=== PATIENT | female | born 1930 | race Caucasian/White ===

== ENCOUNTER 2021-09-08 12:33 | Inpatient (IN) ==
[2021-09-08] MEDS ORDERED: SODIUM CHLORIDE 0.9% 500 ML IV STA (12:40)
[2021-09-08 13:34] LABS: Basophils # (auto) 0.02 K/uL (0-0.2); Basophils % (auto) 0.1 %; Hematocrit (blood only) 34.3 % (37-47); Hemoglobin 11.4 g/dL (12.0-16.0); Immature Granulocytes # (auto) 0.06 K/uL (0.00-0.02); Immature Granulocytes % (auto) 0.3 %; Lymphocytes # (auto) 0.83 K/uL (1.2-3.4); Lymphocytes % (auto) 4.6 %; Mean Corpuscular Hemoglobin 29.2 pg (25-34); Mean Corpuscular Hgb Conc 33.2 g/dL (32-36); Mean Corpuscular Volume 87.9 fL (80-100); Mean Platelet Volume 10.3 fL (7.4-10.4); Monocytes # (auto) 1.35 K/uL (0.11-0.59); Monocytes % (auto) 7.5 %; Neutrophils # (auto) 15.75 K/uL (1.4-6.5); Neutrophils % (auto) 87.5 %; Platelet Count 317 K/uL (130-400); RDW Coefficient of Variation 14.5 % (11.5-14.5); RDW Standard Deviation 46.2 fL (36.4-46.3); White Blood Count 18.01 K/uL (4.8-10.8)
[2021-09-08 14:43] LABS: Albumin Level 3.7 gm/dl (3.4-5.0); BUN Creatinine Ratio 29.2 (10-20); Calcium 9.1 mg/dl (8.5-10.1); Creatinine Clr Calc Pharmacy 28.7 ml/min; Est GFR (African American) 50.3 ml/min; Est GFR (Non-African American) 43.4 ml/min; Globulin 3.6 gm/dl (2.5-4.0); Potassium 3.2 mmol/L (3.5-5.1); Total Protein 7.3 gm/dl (6.0-8.3)
[2021-09-08 15:02] LABS: Appearance Urine Turbid (Clear); Bilirubin Urine 1+ (Negative); Blood Urine 3+ (Negative); Color Urine Amber; Glucose Urine UA Negative (Negative); Ketones Urine Negative (Negative); Leukocyte Esterase Urine 3+ (Negative); Nitrite Urine Negative (Negative); Protein Urine 3+ (Negative); Specific Gravity Urine >= 1.030 (1.000-1.030); Urobilinogen Urine Negative (Negative)
[2021-09-08 15:12] LABS: Bacteria Urine 4+ (Negative); WBC Urine >30 /hpf (0-5)
--- NOTE | 2021-09-08 16:51 | Emergency Department Note ---
History of Present Illness General Chief complaint: Diarrhea Time Seen by Provider: 09/08/21 13:47 Source: patient and family Mode of arrival: EMS Limitations: no limitations History of Present Illness Provider complaint: Weakness, lightheadedness, diarrhea Onset (ago): day(s) Location: abdomen Associated symptoms: + loss of appetite, + malaise, + nausea/vomiting and + weakness; no chest pain, no fever/chills or no shortness of breath Treatments prior to arrival: none This is an 89-year-old female presents emergency department complaining of weakness, dizziness, and diarrhea. Patient states she had recently been evaluated here a couple weeks ago and was diagnosed with a UTI. She states she completed 10 days of antibiotics during which time she had started having some diarrhea. She states since completing the antibiotics her diarrhea has persisted. She denies noting any blood. She states she has several episodes per day and sometimes cannot get to the bathroom in time. Patient denies fevers or chills, denies abdominal pain. Patient states she is weak and dizzy and feels worse when she tries to sit up or stand up. Of note, nurses noted patient to be hypotensive when she first presented. She was initially given an IV fluid bolus per their protocol. Pt seen during a time of high acuity and national emergency pandemic while wearing PPE. Home Medications Medication Instructions Recorded Confirmed Type carvedilol 3.125 mg tablet 3.125 mg PO BID 07/20/21 09/08/21 History simvastatin 40 mg tablet 40 mg PO HS 07/20/21 09/08/21 History ferrous sulfate 325 mg (65 mg 325 mg PO DAILY #30 tab 09/10/21 Rx iron) tablet vancomycin 1,000 mg intravenous 125 mg PO Q6 #33 ea 09/10/21 Rx injection Allergies Allergy/AdvReac Type Severity Reaction Status Date / Time Penicillins Allergy Intermediate Hives Verified 09/08/21 15:23 Sulfa (Sulfonamide AdvReac Intermediate Vomiting Verified 09/08/21 15:23 Antibiotics) Past Med/Surg History Medical History (Updated 09/10/21 @ 18:20 by Clari Forrester DO) Aortic stenosis CAD (coronary artery disease) HLD (hyperlipidemia) HTN (hypertension) Hypertension Mitral regurgitation UTI (urinary tract infection) Family History (Updated 09/08/21 @ 18:29 by VIRGINIE Cherry) Other Family history non-contributory Social History Smoking Status: Former smoker Second Hand Exposure: No; Hx Alcohol Use: No Hx Substance Use: No Preferred Language: Moldovan Communication Ability: Effective Pattern Chart Writer Required: No Beliefs That Will Affect Care: None marital status: / Current Living Situation: Alone Feels Safe at Home: Yes Assistive Devices: Denture - Upper and Glasses Review of Systems A total of 10 systems reviewed and were otherwise negative All systems reviewed & are unremarkable except as noted in HPI & below Physical Exam Vital Signs Vital Signs - 24 hr 09/08/21 12:23 09/08/21 12:36 09/08/21 14:23 Temperature 36.7 C Temperature Source Temporal Artery Scan Pulse Rate 81 Pulse Rate [Right Finger] 74 76 Pulse Rhythm [Right Finger] Regular Regular Pulse Strength [Right Finger] Normal Normal Respiratory Rate 20 17 18 Respiratory Effort / Characteristics Non-Labored Spontaneous Non-Labored Spontaneous Non-Labored Respiratory Depth Normal Normal Normal Respiratory Pattern Regular Regular Blood Pressure 89/63 L Blood Pressure [Right Arm] 120/87 120/87 Blood Pressure Mean 71 Blood Pressure Mean [Right Arm] 98 98 Blood Pressure Position [Right Arm] Sitting Sitting Pulse Oximetry 98 94 99 Oxygen Delivery Method Room Air Room Air Room Air Sepsis Recent Fever Within 48 Hours No Sepsis New/Unexplained Change in Mental Status No Sepsis Action Taken by Nursing No Action Required 09/08/21 16:02 Temperature Temperature Source Pulse Rate Pulse Rate [Right Finger] 68 Pulse Rhythm [Right Finger] Pulse Strength [Right Finger] Respiratory Rate 15 Respiratory Effort / Characteristics Respiratory Depth Normal Respiratory Pattern Blood Pressure Blood Pressure [Right Arm] 108/63 Blood Pressure Mean Blood Pressure Mean [Right Arm] 78 Blood Pressure Position [Right Arm] Pulse Oximetry 97 Oxygen Delivery Method Sepsis Recent Fever Within 48 Hours Sepsis New/Unexplained Change in Mental Status Sepsis Action Taken by Nursing GENERAL: alert, unwell appearing, well nourished, no distress, non-toxic EYE EXAM: normal conjunctiva, PERRL and EOM's grossly intact OROPHARYNX: no exudate, no erythema, lips, buccal mucosa, and tongue normal and mucous membranes are dry NECK: supple, no nuchal rigidity, no adenopathy, non-tender LUNGS: Clear to auscultation. Normal chest wall mechanics, no w/r/r HEART: no murmurs, S1 normal and S2 normal ABDOMEN: abdomen soft, non-tender, normo-active bowel sounds, no masses, no rebound or guarding. BACK: Back is symmetrical on inspection and there is no deformity, no midline tenderness, no CVA tenderness. SKIN: no rashes and no bruising UPPER EXTREMITIES: upper extremities are grossly normal. FROM, nml pulses b/l. LOWER EXTREMITIES: No pitting edema. FROM, nml pulses b/l. NEURO EXAM: Normal sensorium, cranial nerves II-XII grossly intact, normal speech, no gross weakness of arms, no gross weakness of legs. Gross sensation intact. Course Course 1635: Blood pressure slightly downtrending again after IV fluids finished. Patient states she would like to try something by mouth. No recurrent diarrhea since single episode shortly after arrival. Patient states she still feels weak and dizzy but slightly improved. 1715: Patient unable to tolerate anything by mouth, no recurrent vomiting, but states at times made her nauseated and she does not have an appetite. Administered Medications Discontinued Medications Aspirin (Aspirin 81 Mg Ectab) 81 mg PO HS ROSANA Stop: 10/08/21 21:43 Last Admin: 09/09/21 21:10 Dose: 81 mg Documented by: [id number] Admin: 09/08/21 22:26 Dose: 81 mg Documented by: [id number] Carvedilol (Carvedilol 3.125 Mg Tab) 3.125 mg PO BID ROSANA Stop: 10/08/21 21:43 Last Admin: 09/10/21 08:18 Dose: 3.125 mg Documented by: [id number] Admin: 09/09/21 21:10 Dose: 3.125 mg Documented by: [id number] Admin: 09/09/21 08:32 Dose: 3.125 mg Documented by: [id number] Admin: 09/08/21 22:26 Dose: 3.125 mg Documented by: [id number] Heparin Sodium (Porcine) (Heparin Sod 5,000 Unit/0.5 Ml Vial) 5,000 units SQ Q12 ROSANA Stop: 10/08/21 21:43 Last Admin: 09/09/21 08:33 Dose: 5,000 units Documented by: [id number] Admin: 09/08/21 22:27 Dose: 5,000 units Documented by: [id number] Heparin Sodium (Porcine) (Heparin Sod 5,000 Unit/0.5 Ml Vial) 5,000 units SQ Q12 ROSANA Stop: 10/08/21 21:43 Last Admin: 09/08/21 22:13 Dose: Not Given Documented by: [id number] Sodium Chloride (Nss) 500 mls @ 999 mls/hr IV .Q31M STA Stop: 09/08/21 13:10 Last Infusion: 09/08/21 15:24 Dose: 0 mls/hr Documented by: [id number] Admin: 09/08/21 12:57 Dose: 999 mls/hr Documented by: [id number] Ceftriaxone Sodium (Rocephin) 1,000 mg in 50 mls @ 100 mls/hr IV NOW STA Stop: 09/08/21 17:30 Last Infusion: 09/08/21 17:43 Dose: 0 mls/hr Documented by: [id number] Admin: 09/08/21 17:23 Dose: 100 mls/hr Documented by: [id number] Lactated Ringer's (Lr) 1,000 mls @ 80 mls/hr IV .[id number] ROSANA Stop: 10/08/21 17:29 Last Admin: 09/10/21 09:53 Dose: Not Given Documented by: [id number] Infusion: 09/10/21 09:53 Dose: 0 mls/hr Documented by: [id number] Admin: 09/09/21 19:51 Dose: 80 mls/hr Documented by: [id number] Infusion: 09/09/21 19:10 Dose: 80 mls/hr Documented by: [id number] Infusion: 09/09/21 14:45 Dose: 80 mls/hr Documented by: [id number] Admin: 09/09/21 09:34 Dose: 125 mls/hr Documented by: [id number] Infusion: 09/09/21 09:00 Dose: 125 mls/hr Documented by: [id number] Admin: 09/09/21 01:00 Dose: 125 mls/hr Documented by: [id number] Infusion: 09/09/21 01:00 Dose: 125 mls/hr Documented by: [id number] Admin: 09/08/21 17:43 Dose: 125 mls/hr Documented by: [id number] Magnesium Sulfate/Dextrose (Magnesium Sulfate / D5w) 1 gm in 100 mls @ 50 mls/hr IV Q2H ROSANA Stop: 09/09/21 00:59 Last Infusion: 09/09/21 03:04 Dose: 0 mls/hr Documented by: [id number] Admin: 09/09/21 01:00 Dose: 50 mls/hr Documented by: [id number] Infusion: 09/09/21 00:56 Dose: 50 mls/hr Documented by: [id number] Admin: 09/08/21 22:56 Dose: 50 mls/hr Documented by: [id number] Infusion: 09/08/21 21:15 Dose: 50 mls/hr Documented by: [id number] Admin: 09/08/21 19:15 Dose: 50 mls/hr Documented by: [id number] Ceftriaxone Sodium 2,000 mg/ (Dextrose) 50 mls @ 100 mls/hr IV Q24H ROSANA; Protocol Stop: 09/19/21 17:59 Last Infusion: 09/09/21 18:29 Dose: 0 mls/hr Documented by: [id number] Admin: 09/09/21 17:59 Dose: 100 mls/hr Documented by: [id number] Potassium Chloride (Potassium Chloride Crtab 20 Meq Tabcr) 40 meq PO NOW STA Stop: 09/08/21 17:29 Last Admin: 09/08/21 17:43 Dose: 40 meq Documented by: [id number] Potassium Chloride (Potassium Chloride Crtab 20 Meq Tabcr) 40 meq PO Q6H ROSANA Stop: 09/10/21 20:31 Last Admin: 09/10/21 12:14 Dose: 40 meq Documented by: [id number] Admin: 09/10/21 09:26 Dose: 40 meq Documented by: [id number] Raspberry (Raspberry Syrup 5 Ml Udp) 5 ml PO Q6 ROSANA Stop: 09/19/21 00:00 Last Admin: 09/10/21 12:14 Dose: 5 ml Documented by: [id number] Admin: 09/10/21 05:51 Dose: 5 ml Documented by: [id number] Admin: 09/10/21 00:47 Dose: 5 ml Documented by: [id number] Admin: 09/09/21 17:59 Dose: 5 ml Documented by: [id number] Admin: 09/09/21 12:37 Dose: 5 ml Documented by: [id number] Admin: 09/09/21 05:18 Dose: 5 ml Documented by: [id number] Admin: 09/09/21 01:00 Dose: 5 ml Documented by: [id number] Simvastatin (Simvastatin 40 Mg Tab) 40 mg PO HS ROSANA Stop: 10/08/21 21:43 Last Admin: 09/09/21 21:10 Dose: 40 mg Documented by: [id number] Admin: 09/08/21 22:27 Dose: 40 mg Documented by: [id number] Vancomycin HCl (Vancomycin Hcl 125 Mg/2.5ml Soln) 125 mg PO ONE ONE; Protocol Stop: 09/08/21 18:02 Last Admin: 09/08/21 20:37 Dose: 125 mg Documented by: [id number] Vancomycin HCl (Vancomycin Hcl 125 Mg/2.5ml Soln) 125 mg PO Q6 ROSANA; Protocol Stop: 09/19/21 00:00 Last Admin: 09/10/21 12:13 Dose: 125 mg Documented by: [id number] Admin: 09/10/21 05:51 Dose: 125 mg Documented by: [id number] Admin: 09/10/21 00:47 Dose: 125 mg Documented by: [id number] Admin: 09/09/21 17:59 Dose: 125 mg Documented by: [id number] Admin: 09/09/21 12:37 Dose: 125 mg Documented by: [id number] Admin: 09/09/21 05:18 Dose: 125 mg Documented by: [id number] Admin: 09/09/21 01:00 Dose: 125 mg Documented by: [id number] Medical Decision Making Differential Diagnosis Differential Diagnosis includes but is not limited to dehydration, stroke, anemia, hypoglycemia, hyponatremia, hypernatremia, urinary tract infection, pneumonia, bronchitis, sepsis, gastroenteritis, additional abdominal pathology, metabolic abnormalities and infections. Medical Records Attestation: I reviewed the patient's medical records. Home Medications Current Medication List: was personally reviewed by me Laboratory Data Attestation: I reviewed the patient's lab results. Result diagrams: 09/10/21 06:35 09/10/21 06:35 Lab Results 09/08/21 09/08/21 09/08/21 Range/Units 12:57 12:57 12:57 WBC 18.01 H (4.8-10.8) K/uL RBC 3.90 L (4.2-5.4) M/uL Hgb 11.4 L (12.0-16.0) g/dL Hct 34.3 L (37-47) % MCV 87.9 (80-100) fL MCH 29.2 (25-34) pg MCHC 33.2 (32-36) g/dL RDW Std Deviation 46.2 (36.4-46.3) fL RDW Coeff of Annette 14.5 (11.5-14.5) % Plt Count 317 (130-400) K/uL MPV 10.3 (7.4-10.4) fL Immature Gran % (Auto) 0.3 % Neut % (Auto) 87.5 % Lymph % (Auto) 4.6 % Cherry % (Auto) 7.5 % Eos % (Auto) 0.0 % Baso % (Auto) 0.1 % Neut # (Auto) 15.75 H (1.4-6.5) K/uL Lymph # (Auto) 0.83 L (1.2-3.4) K/uL Cherry # (Auto) 1.35 H (0.11-0.59) K/uL Eos # (Auto) 0.00 (0-0.5) K/uL Baso # (Auto) 0.02 (0-0.2) K/uL Immature Gran # (Auto) 0.06 H (0.00-0.02) K/uL Sodium 136 (136-145) mmol/L Potassium 3.2 L (3.5-5.1) mmol/L Chloride 102 (98-107) mmol/L Carbon Dioxide 21 (21-32) mmol/L Anion Gap 13 H (3-11) BUN 33 H (6-23) mg/dl Creatinine 1.13 (0.6-1.2) mg/dl Est Cr Clr Drug Dosing 28.7 ml/min Est GFR ( Amer) 50.3 ml/min Est GFR (Non-Af Amer) 43.4 ml/min BUN/Creatinine Ratio 29.2 H (10-20) Glucose 105 H (70-99(Fasting)) mg/dl Lactate (0.4-2.0) mmol/L Calcium 9.1 (8.5-10.1) mg/dl Magnesium 1.7 (1.7-2.4) mg/dl Total Bilirubin 1.0 (0.2-1.0) mg/dl AST 17 (13-39) U/L ALT 10 (7-52) U/L Alkaline Phosphatase 48 (34-104) U/L Total Protein 7.3 (6.0-8.3) gm/dl Albumin 3.7 (3.4-5.0) gm/dl Globulin 3.6 (2.5-4.0) gm/dl Albumin/Globulin Ratio 1.0 (0.9-2) Lipase 9 L (11-82) U/L Procalcitonin (0-0.5) ng/ml Urine Color Urine Appearance (Clear) Urine pH (4.5-7.5) Ur Specific [place] (1.000-1.030) Urine Protein (Negative) Urine Glucose (UA) (Negative) Urine Ketones (Negative) Urine Blood (Negative) Urine Nitrite (Negative) Urine Bilirubin (Negative) Urine Urobilinogen (Negative) Ur Leukocyte Esterase (Negative) Urine RBC (0-4) /hpf Urine WBC (0-5) /hpf Ur Epithelial Cells (0-5) /lpf Ur Renal Epithelial Cell (0-5) /lpf Urine Bacteria (Negative) SARS-CoV-2, RNA, NAAT (NEGATIVE) 09/08/21 09/08/21 09/08/21 Range/Units 14:20 14:47 14:47 WBC (4.8-10.8) K/uL RBC (4.2-5.4) M/uL Hgb (12.0-16.0) g/dL Hct (37-47) % MCV (80-100) fL MCH (25-34) pg MCHC (32-36) g/dL RDW Std Deviation (36.4-46.3) fL RDW Coeff of Annette (11.5-14.5) % Plt Count (130-400) K/uL MPV (7.4-10.4) fL Immature Gran % (Auto) % Neut % (Auto) % Lymph % (Auto) % Cherry % (Auto) % Eos % (Auto) % Baso % (Auto) % Neut # (Auto) (1.4-6.5) K/uL Lymph # (Auto) (1.2-3.4) K/uL Cherry # (Auto) (0.11-0.59) K/uL Eos # (Auto) (0-0.5) K/uL Baso # (Auto) (0-0.2) K/uL Immature Gran # (Auto) (0.00-0.02) K/uL Sodium (136-145) mmol/L Potassium (3.5-5.1) mmol/L Chloride (98-107) mmol/L Carbon Dioxide (21-32) mmol/L Anion Gap (3-11) BUN (6-23) mg/dl Creatinine (0.6-1.2) mg/dl Est Cr Clr Drug Dosing ml/min Est GFR ( Amer) ml/min Est GFR (Non-Af Amer) ml/min BUN/Creatinine Ratio (10-20) Glucose (70-99(Fasting)) mg/dl Lactate 1.5 (0.4-2.0) mmol/L Calcium (8.5-10.1) mg/dl Magnesium (1.7-2.4) mg/dl Total Bilirubin (0.2-1.0) mg/dl AST (13-39) U/L ALT (7-52) U/L Alkaline Phosphatase (34-104) U/L Total Protein (6.0-8.3) gm/dl Albumin (3.4-5.0) gm/dl Globulin (2.5-4.0) gm/dl Albumin/Globulin Ratio (0.9-2) Lipase (11-82) U/L Procalcitonin 0.09 (0-0.5) ng/ml Urine Color Marquita Urine Appearance Turbid A (Clear) Urine pH 7.0 (4.5-7.5) Ur Specific [place] >= 1.030 (1.000-1.030) Urine Protein 3+ H (Negative) Urine Glucose (UA) Negative (Negative) Urine Ketones Negative (Negative) Urine Blood 3+ H (Negative) Urine Nitrite Negative (Negative) Urine Bilirubin 1+ H (Negative) Urine Urobilinogen Negative (Negative) Ur Leukocyte Esterase 3+ H (Negative) Urine RBC 10-30 H (0-4) /hpf Urine WBC >30 H (0-5) /hpf Ur Epithelial Cells 5-10 H (0-5) /lpf Ur Renal Epithelial Cell 5-10 H (0-5) /lpf Urine Bacteria 4+ H (Negative) SARS-CoV-2, RNA, NAAT (NEGATIVE) 03/22/22 Range/Units 17:25 WBC (4.8-10.8) K/uL RBC (4.2-5.4) M/uL Hgb (12.0-16.0) g/dL Hct (37-47) % MCV (80-100) fL MCH (25-34) pg MCHC (32-36) g/dL RDW Std Deviation (36.4-46.3) fL RDW Coeff of Annette (11.5-14.5) % Plt Count (130-400) K/uL MPV (7.4-10.4) fL Immature Gran % (Auto) % Neut % (Auto) % Lymph % (Auto) % Cherry % (Auto) % Eos % (Auto) % Baso % (Auto) % Neut # (Auto) (1.4-6.5) K/uL Lymph # (Auto) (1.2-3.4) K/uL Cherry # (Auto) (0.11-0.59) K/uL Eos # (Auto) (0-0.5) K/uL Baso # (Auto) (0-0.2) K/uL Immature Gran # (Auto) (0.00-0.02) K/uL Sodium (136-145) mmol/L Potassium (3.5-5.1) mmol/L Chloride (98-107) mmol/L Carbon Dioxide (21-32) mmol/L Anion Gap (3-11) BUN (6-23) mg/dl Creatinine (0.6-1.2) mg/dl Est Cr Clr Drug Dosing ml/min Est GFR ( Amer) ml/min Est GFR (Non-Af Amer) ml/min BUN/Creatinine Ratio (10-20) Glucose (70-99(Fasting)) mg/dl Lactate (0.4-2.0) mmol/L Calcium (8.5-10.1) mg/dl Magnesium (1.7-2.4) mg/dl Total Bilirubin (0.2-1.0) mg/dl AST (13-39) U/L ALT (7-52) U/L Alkaline Phosphatase (34-104) U/L Total Protein (6.0-8.3) gm/dl Albumin (3.4-5.0) gm/dl Globulin (2.5-4.0) gm/dl Albumin/Globulin Ratio (0.9-2) Lipase (11-82) U/L Procalcitonin (0-0.5) ng/ml Urine Color Urine Appearance (Clear) Urine pH (4.5-7.5) Ur Specific [place] (1.000-1.030) Urine Protein (Negative) Urine Glucose (UA) (Negative) Urine Ketones (Negative) Urine Blood (Negative) Urine Nitrite (Negative) Urine Bilirubin (Negative) Urine Urobilinogen (Negative) Ur Leukocyte Esterase (Negative) Urine RBC (0-4) /hpf Urine WBC (0-5) /hpf Ur Epithelial Cells (0-5) /lpf Ur Renal Epithelial Cell (0-5) /lpf Urine Bacteria (Negative) SARS-CoV-2, RNA, NAAT NEGATIVE (NEGATIVE) MDM Narrative This is an 89 yo female who presents with weakness, dizziness, poor po intake, and ongiong diarrhea after recent course of antibiotics for a UTI. Patient did complete the course and on review of culture in EMR, was sensitive to antibiotic. Patient initially hypotensive and orthostatic, she did respond to IVF bolus. Patient afebrile and denied abd pain. Patient appeared prerenal on labs with mild hypomagnesemia. Patient hydrated, magnesium repleted, and pt wished to try to go home. Patient was unable to tolerate po intake here, was still orthostatic at bedside, unable to walk, with downtrending BP. Discussed additional inpatient mgmt and monitoring, pt and daughter at bedside verbalized understanding and were in agreement. Patient was unable to produce stool specimen for testing including C.diff initially. Despite recent UTI, UA appeared consistent with possible infection so patient covered with IV rocephin. Patient denied abd pain throughout. I do not suspect perf, gi bleed, sbo, volvulus, mesenteric ischemia, aaa, dissection, diverticulitis, cholecystitis, pancreatitis. An order was placed for continuous cardiac monitoring. The monitor shows a rate of __60_ with _normal sinus__ rhythm. Impression & Plan Generalized weakness, Diarrhea, Hypomagnesemia, Hypotension, Dehydration Discharge Plan Visit Data Chief Complaint: Diarrhea ED Provider: Clari Forrester Discharge Problem: Generalized weakness, Diarrhea, Hypomagnesemia, Hypotension, Dehydration Patient Disposition: Admitted As Inpatient Discharge Instructions Interventions: ED Discharge Assessment Last Done: 09/08/21 20:58 Discharge Problem: Diarrhea Qualifiers: Diarrhea type: unspecified type Qualified Code(s): R19.7 - Diarrhea, unspecified Hypotension Qualifiers: Hypotension type: hypotension due to hypovolemia Qualified Code(s): I95.89 - Other hypotension
[2021-09-08] MEDS ORDERED: cefTRIAXone SODIUM 1,000 MG/50 ML BAG IV STA (17:01)
[2021-09-08] MEDS ORDERED: POTASSIUM CHLORIDE CRTAB 20 MEQ TABCR PO STA (17:28)
[2021-09-08] MEDS: LACTATED RINGER'S 1,000 ML IV SCH (17:43)
[2021-09-08] MEDS ORDERED: VANCOMYCIN HCL 125 MG/2.5ML SOLN PO ONE (18:01)
--- NOTE | 2021-09-08 18:51 | History & Physical Report ---
Date of Service September 08, 2021 Assessment & Plan (1) Diarrhea: Plan: Diarrhea most likely consistent at this time C. Diff - DDX: CDiff vs. Diverticulitis vs. colitis - Symptoms started following ABX and LLQ abdominal pain was noted after her diarrhea started - 5-6 episodes per day - CT abdomen and pelvis above - [place] diet - Continue LR for replacement of intravascular volume until better able to tolerate PO - Lactate negative - PCT negative (2) C. difficile colitis: Plan: As above highly suspect C. Diff - Start Oral Vancomycin - CT scan consistent with pancolitis - as above likely C. Diff- culture pending (3) UTI (urinary tract infection): Plan: 08/24/21 E. Coli with past culture- no sensitivities - Urine culture pending - Rocephin 2GM IV q24- adjust pending cultures (4) Hypomagnesemia: Plan: Secondary to diarrhea loses and poor oral intake - Mg 1.7 - 3 GM IVPB - will likely need continued replacement until stool losses become less (5) Abdominal pain: Plan: As above- LLQ tenderness rule out diverticulitis - evaluate Colon size as well with CTAP (6) Aortic stenosis: Plan: Follows with Dr. Lopez- had worsening of Aortic Stenosis - EF 60% with mild LVH - LVOT/AVTI ratio 0.21 - Awaiting evaluation for likely TAVR at [facility] (7) CAD (coronary artery disease): Plan: Non-obstructive via cath 07/11 - 1. Moderate nonobstructive multivessel coronary artery disease -40 % distal left main (CSA 7.4 mm by IVUS) 50 to 60% (by IVUS) ostial/proximal LAD disease (FFR 0.85). 50% ostial circumflex 40% R-PAV after takeoff of PDA Continue BB, ASA, Statin (8) HLD (hyperlipidemia): Plan: Continue simvastatin 40mg nightly (9) HTN (hypertension): Plan: Controlled- She was hypotensive on arrival- improved following 1L of crystalloid - Continue Carvedilol with hold parameters (10) Mitral regurgitation: Plan: As above- no change reported on previous ECHO (11) Incidental adrenal cortical adenoma: Plan: There is a 2.8 cm hyperdense left adrenal gland nodule. This could represent internal hemorrhage within an adrenal gland nodule (12) Incidental lung nodule: Plan: A few scattered nodules within the lung bases with the largest in the left lower lobe measuring 6 mm. There is also a small focus of consolidation within the base of the lingula measuring 1.6 cm. These bear watching on future examin ations. Solitary nodule size: 6-8 mm * Low risk patients: follow-up at 6-12 months, then consider further follow-up at 18-24 months * high risk patients: initial follow-up CT at 6-12 months and then at 18-24 months if no change Multiple nodules size: 6-8 mm * Low risk patients: follow-up at 3-6 months, then consider further follow-up at 18-24 months * high risk patients: follow-up at 3-6 months, then at 18-24 months if no change History of Present Illness Primary Care Provider: Benson Vasquez, DO 89 YOF with past medical history of: Aortic Stenosis (Severe), Moderate Mitral Regurge, HTN, HLD, UTI. Patient comes to the [facility] today for complaints of increase fatigue, diarrhea, decreased oral intake, this has been ongoing for the past 2 weeks, she endorses that this recently started after she was given Cefdinir for URI. This was initiated on on 08/24/21, she was also subsequently found at that time to have E.Coli on her urine culture, but sensitivities were not performed. The patient states that she has some lower quadrant abdominal pain that started after the diarrhea began. She denies fevers, chills, back pain, or vomiting. Her stools have been soft with mostly water and particles floating on top, without mucous or blood. The patient was noted to be hypotens rangel on arrival to the [facility] she was given 1 liter of crystalloid; followed by LR @125ml/hr. In the [facility] the patient had routine labs performed, blood cultures, and UA. The patient's lab work was indicative of elevated WBC to 18 with NLR, and UA was consistent as well with UTI. She is awaiting stool studies to include C. DIFF. Patient is tender to bilateral lower quadrants of her abdomen, with left > right, will obtain CT of the abdomen and pelvis to evaluate for diverticulitis. Patient history more consistent with C. Diff at this time, will start empirically on oral Vancomycin while studies are pending. Place on Rocephin for her UTI. Await her results of CT abdomen and pelvis for further antibiotic tailoring. She has felt better following her IVF and attempting bland diet in the ER. Continue with IVF. Patient has been getting worked up for AV replacement likely TAVR- she follows with [facility] cardiology. She had cath done for part of her evaluation and noted with moderate non-obstructive CAD. She feels her symptoms are stable at this time and has not worsened with her decrease oral intake or hypotension noted above. COVID test on admission is: NEGATIVE Allergies Allergy/AdvReac Type Severity Reaction Status Date / Time Penicillins Allergy Intermediate Hives Verified 09/08/21 15:23 Sulfa (Sulfonamide AdvReac Intermediate Vomiting Verified 09/08/21 15:23 Antibiotics) Home Medications Medication Instructions Recorded Confirmed Type aspirin 81 mg capsule 81 mg PO HS 07/20/21 09/08/21 History carvedilol 3.125 mg tablet 3.125 mg PO BID 07/20/21 09/08/21 History hydrochlorothiazide 25 mg tablet 25 mg PO QAM 07/20/21 09/08/21 History simvastatin 40 mg tablet 40 mg PO HS 07/20/21 09/08/21 History Past Med/Surg History Medical History (Updated 09/08/21 @ 21:34 by VIRGINIE Cherry) Aortic stenosis CAD (coronary artery disease) HLD (hyperlipidemia) HTN (hypertension) Hypertension Mitral regurgitation UTI (urinary tract infection) Family History (Updated 09/08/21 @ 18:29 by VIRGINIE Cherry) Other Family history non-contributory Social History Smoking Status: Never smoker Hx Alcohol Use: Yes Hx Substance Use: No Preferred Language: [place] 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 Current Living Situation: Alone Feels Safe at Home: Yes Review of Systems Review of Systems: REVIEW OF SYSTEMS: Constitutional: No fever, sweats or chills Eyes: No diplopia, no worsening or blurred vision ENT: normal hearing, no trouble swallowing Respiratory: (+) dyspnea worsening to valve function, No cough, sputum, Cardiovascular: No chest pain, tightness or palpitations Abdomen: (+) pain, nausea, vomiting, diarrhea, NO constipation, nausea/vomitting Musculoskeletal: No joint pain, calf pain, swelling Neurologic: (+) generalized weakness, Psychiatric: No anxiety or depression Skin: No rash or itch Physical Exam Physical Exam: PHYSICAL EXAM: General: Fatigued appearing, awake, alert, no apparent distress Head: Normocephalic, atraumatic ENT: PERRLA, EOMI, no pharyngeal exudate, mucous membranes dry Neuro: AAO x 3, speech clear and appropriate, strength intact bilaterally 5/5, sensation intact and equal all extremities and dermatomes, no pronator drift Chest: equal rise and fall of the chest, no accessory muscle use, no heaves or thrills, clear to auscultation, on room air, Cardiac: Regular rate and rhythm, telemetry reviewed, skin warm dry, cap refill <3 seconds, peripheral pulses +2 no JVD, no murmur, no edema GI: NABS x 4 quadrants, soft, tender to palpation left lower quad > right lower quad, no rebound, guarding : Spontaneously voiding, no pain, no CVA tenderness, Extremities: Normal inspection, no peripheral edema or erythema, calfs nontender to palpation Psych: Normal mood and affect Skin: no rash or erythema Results & Data Results & Data ([facility]) Vital Signs (Past 12 Hours) Vital Signs Temp Pulse Pulse Resp BP BP Pulse Ox 09/08/21 16:02 68 15 108/63 97 09/08/21 14:23 76 18 120/87 99 09/08/21 12:36 36.7 C 81 17 89/63 L 94 09/08/21 12:23 74 20 120/87 98 Laboratory Results Laboratory Results - last 24 hr 09/08/21 09/08/21 09/08/21 12:57 12:57 12:57 WBC 18.01 H RBC 3.90 L Hgb 11.4 L Hct 34.3 L MCV 87.9 MCH 29.2 MCHC 33.2 RDW Std Deviation 46.2 RDW Coeff of Annette 14.5 Plt Count 317 MPV 10.3 Immature Gran % (Auto) 0.3 Neut % (Auto) 87.5 Lymph % (Auto) 4.6 Mcclain % (Auto) 7.5 Eos % (Auto) 0.0 Baso % (Auto) 0.1 Neut # (Auto) 15.75 H Lymph # (Auto) 0.83 L Mcclain # (Auto) 1.35 H Eos # (Auto) 0.00 Baso # (Auto) 0.02 Immature Gran # (Auto) 0.06 H Sodium 136 Potassium 3.2 L Chloride 102 Carbon Dioxide 21 Anion Gap 13 H BUN 33 H Creatinine 1.13 Est Cr Clr Drug Dosing 28.7 Est GFR ( Amer) 50.3 Est GFR (Non-Af Amer) 43.4 BUN/Creatinine Ratio 29.2 H Glucose 105 H Lactate Calcium 9.1 Magnesium 1.7 Total Bilirubin 1.0 AST 17 ALT 10 Alkaline Phosphatase 48 Total Protein 7.3 Albumin 3.7 Globulin 3.6 Albumin/Globulin Ratio 1.0 Lipase 9 L Procalcitonin Urine Color Urine Appearance Urine pH Ur Specific [place] Urine Protein Urine Glucose (UA) Urine Ketones Urine Blood Urine Nitrite Urine Bilirubin Urine Urobilinogen Ur Leukocyte Esterase Urine RBC Urine WBC Ur Epithelial Cells Ur Renal Epithelial Cell Urine Bacteria SARS-CoV-2, RNA, NAAT 09/08/21 09/08/21 09/08/21 14:20 14:47 14:47 WBC RBC Hgb Hct MCV MCH MCHC RDW Std Deviation RDW Coeff of Annette Plt Count MPV Immature Gran % (Auto) Neut % (Auto) Lymph % (Auto) Mcclain % (Auto) Eos % (Auto) Baso % (Auto) Neut # (Auto) Lymph # (Auto) Mcclain # (Auto) Eos # (Auto) Baso # (Auto) Immature Gran # (Auto) Sodium Potassium Chloride Carbon Dioxide Anion Gap BUN Creatinine Est Cr Clr Drug Dosing Est GFR ( Amer) Est GFR (Non-Af Amer) BUN/Creatinine Ratio Glucose Lactate 1.5 Calcium Magnesium Total Bilirubin AST ALT Alkaline Phosphatase Total Protein Albumin Globulin Albumin/Globulin Ratio Lipase Procalcitonin 0.09 Urine Color Marquita Urine Appearance Turbid A Urine pH 7.0 Ur Specific [place] >= 1.030 Urine Protein 3+ H Urine Glucose (UA) Negative Urine Ketones Negative Urine Blood 3+ H Urine Nitrite Negative Urine Bilirubin 1+ H Urine Urobilinogen Negative Ur Leukocyte Esterase 3+ H Urine RBC 10-30 H Urine WBC >30 H Ur Epithelial Cells 5-10 H Ur Renal Epithelial Cell 5-10 H Urine Bacteria 4+ H SARS-CoV-2, RNA, NAAT 09/08/21 17:25 WBC RBC Hgb Hct MCV MCH MCHC RDW Std Deviation RDW Coeff of Annette Plt Count MPV Immature Gran % (Auto) Neut % (Auto) Lymph % (Auto) Mcclain % (Auto) Eos % (Auto) Baso % (Auto) Neut # (Auto) Lymph # (Auto) Mcclain # (Auto) Eos # (Auto) Baso # (Auto) Immature Gran # (Auto) Sodium Potassium Chloride Carbon Dioxide Anion Gap BUN Creatinine Est Cr Clr Drug Dosing Est GFR ( Amer) Est GFR (Non-Af Amer) BUN/Creatinine Ratio Glucose Lactate Calcium Magnesium Total Bilirubin AST ALT Alkaline Phosphatase Total Protein Albumin Globulin Albumin/Globulin Ratio Lipase Procalcitonin Urine Color Urine Appearance Urine pH Ur Specific [place] Urine Protein Urine Glucose (UA) Urine Ketones Urine Blood Urine Nitrite Urine Bilirubin Urine Urobilinogen Ur Leukocyte Esterase Urine RBC Urine WBC Ur Epithelial Cells Ur Renal Epithelial Cell Urine Bacteria SARS-CoV-2, RNA, NAAT NEGATIVE Diagnostic Findings Abdomen/Pelvis CT 09/08/21 17:[address] WITHOUT CONTRAST CT DOSE: 334.30 mGy.cm HISTORY: Generalized abdominal pain - diarrhea TECHNIQUE: Multiaxial CT images of the abdomen and pelvis were performed without contrast. A dose lowering technique was utilized adhering to the principles of ALARA. COMPARISON STUDY: None. FINDINGS: Severe shaped scoliosis of the thoracolumbar spine. Small fat-cont aining right-sided Bochdalek hernia. A few subcentimeter nodules within the lung bases with the largest in the left lower lobe measuring 6 mm. Small focus of consolidation within the base of the lingula favors atelectasis. This measures approximately 1.6 cm. Ascending thoracic aorta measures up to 4.2 cm in diameter. The heart is top normal in size. The bladder is not well-distended but appears unremarkable. The uterus and bilateral adnexa are within normal limits. Mild to moderate thickening of the entire colonic wall with mild pericolonic fat stranding. This is consistent with a nonspecific pancolitis but favors an infectious/inflammatory process. This could represent a C. difficile colitis. No perforation or abscess. Multiple colonic diverticula are noted. The appendix is not identified and appear surgically absent. No evidence for bowel obstruction. The unenhanced gallbladder, pancreas, spleen, and right adrenal gland are unremarkable. There is a 2.8 cm hyperdense left adrenal gland nodule. This could represent internal hemorrhage within an adrenal gland nodule. No renal stones or hydronephrosis. Calcified plaque within the normal caliber abdominal aorta. IMPRESSION: 1. Mild to moderate bowel wall thickening involving the colon with associated pericolonic fat stranding. This is consistent with a pancolitis and favors an infectious or inflammatory process such as a C. difficile colitis. No perforation or abscess identified. 2. Colonic diverticulosis. No evidence for acute diverticulitis. 3. No evidence for bowel obstruction. 4. Prior appendectomy. 5. A few scattered nodules within the lung bases with the largest in the left lower lobe measuring 6 mm. There is also a small focus of consolidation within the base of the lingula measuring 1.6 cm. These bear watching on future examinations. 6. There is a 2.8 cm hyperdense left adrenal gland nodule. This could represent internal hemorrhage within an adrenal gland nodule. Please refer to below summary of Fleischner criteria recommendations for follow- up of incidental CT nodules (Keenan Oconnell, Guidelines for management of small pulmonary nodules detected on CT scans: A statement from the Fleischner Society, Radiology 237: [phone].) SOLID NODULES Solitary nodule size: <6 mm * Low risk patients: no follow-up needed * high risk patients: optional CT at 12 months Solitary nodule size: 6-8 mm * Low risk patients: follow-up at 6-12 months, then consider further follow-up at 18-24 months * high risk patients: initial follow-up CT at 6-12 months and then at 18-24 months if no change Solitary nodule size: >8 mm * either low or high risk patients - consider follow-up CT at 3 months, and/or CT-PET, and/or biopsy Multiple nodules size: <6 mm * Low risk patients: no routine follow-up * high risk patients: optional CT at 12 months Multiple nodules size: 6-8 mm * Low risk patients: follow-up at 3-6 months, then consider further follow-up at 18-24 months * high risk patients: follow-up at 3-6 months, then at 18-24 months if no change Multiple nodules size: >8 mm * Low risk patients: follow-up at 3-6 months, then consider further follow-up at 18-24 months * high risk patients: follow-up at 3-6 months, then at 18-24 months if no change Note: newly detected indeterminate nodule in persons 35 years of age or older. * Low risk patients: minimal or absent history of smoking and/or other known risk factors * high risk patients: history of smoking or of other known risk factors (e.g. first degree relative with lung cancer, or exposure to asbestos, radon, uranium) * if a nodule up to 8 mm is partly solid or is ground glass further follow-up is required after 24 months to exclude possible slow growing adenocarcinoma (MITCHELL) SUBSOLID NODULES Solitary pure ground-glass nodule * nodule size <6 mm - no CT follow-up required * nodule size >=6 mm - follow-up CT at 6-12 months, then every 2 years until 5 years Solitary part-solid nodule * nodule size <6 mm - no CT follow-up required * nodule size >=6 mm - follow-up CT at 3-6 months. If unchanged, and solid component remains <6 mm, then annual follow-up for 5 years Multiple subsolid nodules * nodule size <6 mm - follow-up CT at 3-6 months, consider further follow-up at 2 and 4 years if stable * nodule size >=6 mm - follow-up CT at 3-6 months, subsequent management based on the most suspicious nodule(s) ACT 112: Negative or not required by law. Electronically signed by: Joey Sy M.D. 09/08/2021 8:16 PM Medications Administered Lactated Ringer's (Lr) 1,000 mls @ 125 mls/hr IV .Q8H ROSANA Stop: 10/08/21 17:29 Last Admin: 09/08/21 17:43 Dose: 125 mls/hr Documented by: [id number] Discontinued Medications Sodium Chloride (Nss) 500 mls @ 999 mls/hr IV .Q31M STA Stop: 09/08/21 13:10 Last Infusion: 09/08/21 15:24 Dose: 0 mls/hr Documented by: [id number] Admin: 09/08/21 12:57 Dose: 999 mls/hr Documented by: [id number] Ceftriaxone Sodium (Rocephin) 1,000 mg in 50 mls @ 100 mls/hr IV NOW STA Stop: 09/08/21 17:30 Last Admin: 09/08/21 17:23 Dose: 100 mls/hr Documented by: [id number] Potassium Chloride (Potassium Chloride Crtab 20 Meq Tabcr) 40 meq PO NOW STA Stop: 09/08/21 17:29 Last Admin: 09/08/21 17:43 Dose: 40 meq Documented by: [id number] Home Medications aspirin 81 mg capsule 81 mg PO HS 07/20/21 [History Confirmed 09/08/21] carvedilol 3.125 mg tablet 3.125 mg PO BID 07/20/21 [History Confirmed 09/08/21] hydrochlorothiazide 25 mg tablet 25 mg PO QAM 07/20/21 [History Confirmed 09/08/21] simvastatin 40 mg tablet 40 mg PO HS 07/20/21 [History Confirmed 09/08/21] Active Medications Lactated Ringer's (Lr) 1,000 mls @ 125 mls/hr IV .Q8H ROSANA Stop: 10/08/21 17:29 Last Admin: 09/08/21 17:43 Dose: 125 mls/hr Documented by: ECG Additional Comments: Normal sinus rhythm Septal infarct , age undetermined Nonspecific T wave abnormality Abnormal ECG No previous ECGs available Code Status & VTE Plan Code Status CODE: FULL VTE: SCDS, Heparin 5000 untis sub q q12 VTE Prophylaxis Plan VTE Prophylaxis will be ordered: Yes Supervising Physician Co-Signing Physician 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 Also found to have UTI. She is having some left lower quadrant abdominal pain. History and ROS reviewed as above Vitals reviewed Gen: [AAOx3, NAD] HEENT: [anicteric sclerae, EOMI] CV: [RRR 3/6 DIMPLE at RUSB nl S1S2] Pulm: [CTAB no wcr] Abd: [+BS soft mild +TTP in LLQ w/o guarding or rebound, ND no masses or hernias] Ext: [no edema] Skin: [no rashes, warm/dry] Neuro: [full strength throughout] Labs, rads reviewed 89-year-old female here with hypotension, diarrhea after recent antibiotic use- suspect C. difficile colitis Start vancomycin p.o. empirically while awaiting stool sample-she gave 2 stool samples in the ER but neither 1 was properly sent to the lab Continue hydration and support blood pressure PG Care Time/CCT Total # of Minutes Spent Total Time Spent with Patient: Total time spent is greater than 50% in coordination of care (as documented) at patient's floor/unit and/or counseling patient: Coding Level of Care Code 48934 Initial Inpt Care Lvl 3 Diagnoses Diarrhea R19.7 C. difficile colitis A04.72 Abdominal pain R10.9 Aortic stenosis I35.0 CAD (coronary artery disease) I25.10 HLD (hyperlipidemia) E78.5 HTN (hypertension) I10 Mitral regurgitation I34.0 UTI (urinary tract infection) N39.0 Hypomagnesemia E83.42 Incidental adrenal cortical adenoma D35.00 Incidental lung nodule R91.1
[2021-09-08] MEDS: MAGNESIUM SULFATE / D5W 1 GM/100 ML BAG IV SCH ×2 (19:15→22:56)
--- NOTE | 2021-09-08 20:17 | CT Scan Report ---
ABDOMEN AND PELVIS CT WITHOUT CONTRAST CT DOSE: 334.30 mGy.cm HISTORY: Generalized abdominal pain - diarrhea TECHNIQUE: Multiaxial CT images of the abdomen and pelvis were performed without contrast. A dose lo wering technique was utilized adhering to the principles of ALARA. COMPARISON STUDY: None. FINDINGS: Severe shaped scoliosis of the thoracolumbar spine. Small fat-containing right-sided Bochda lek hernia. A few subcentimeter nodules within the lung bases with the largest in the left lower lobe measuring 6 mm. Small focus of consolidation within the base of the lingula favors atelectasis. This measures approximately 1.6 cm. Ascending thoracic aorta measures up to 4.2 cm in diameter. The heart is top normal in size. The bladder is not well-distended but appears unremarkable. The uterus and bi lateral adnexa are within normal limits. Mild to moderate thickening of the entire colonic wall with mild pericolonic fat stranding. This is consistent with a nonspecific pancolitis but favors an infect ious/inflammatory process. This could represent a C. difficile colitis. No perforation or abscess. Mu ltiple colonic diverticula are noted. The appendix is not identified and appear surgically absent. No evidence for bowel obstruction. The unenhanced gallbladder, pancreas, spleen, and right adrenal glan d are unremarkable. There is a 2.8 cm hyperdense left adrenal gland nodule. This could represent inte rnal hemorrhage within an adrenal gland nodule. No renal stones or hydronephrosis. Calcified plaque w ithin the normal caliber abdominal aorta. IMPRESSION: 1. Mild to moderate bowel wall thickening involving the colon with associated pericolonic fat strandi ng. This is consistent with a pancolitis and favors an infectious or inflammatory process such as a C . difficile colitis. No perforation or abscess identified. 2. Colonic diverticulosis. No evidence for acute diverticulitis. 3. No evidence for bowel obstruction. 4. Prior appendectomy. 5. A few scattered nodules within the lung bases with the largest in the left lower lobe measuring 6 mm. There is also a small focus of consolidation within the base of the lingula measuring 1.6 cm. The se bear watching on future examinations. 6. There is a 2.8 cm hyperdense left adrenal gland nodule. This could represent internal hemorrhage w ithin an adrenal gland nodule. Please refer to below summary of Fleischner criteria recommendations for follow-up of incidental CT n odules (H MacMahon, Guidelines for management of small pulmonary nodules detected on CT scans: A sta tement from the Fleischner Society, Radiology 237: [phone].) SOLID NODULES Solitary nodule size: <6 mm * Low risk patients: no follow-up needed * high risk patients: optional CT at 12 months Solitary nodule size: 6-8 mm * Low risk patients: follow-up at 6-12 months, then consider further follow-up at 18-24 months * high risk patients: initial follow-up CT at 6-12 months and then at 18-24 months if no change Solitary nodule size: >8 mm * either low or high risk patients - consider follow-up CT at 3 months, and/or CT-PET, and/or biopsy Multiple nodules size: <6 mm * Low risk patients: no routine follow-up * high risk patients: optional CT at 12 months Multiple nodules size: 6-8 mm * Low risk patients: follow-up at 3-6 months, then consider further follow-up at 18-24 months * high risk patients: follow-up at 3-6 months, then at 18-24 months if no change Multiple nodules size: >8 mm * Low risk patients: follow-up at 3-6 months, then consider further follow-up at 18-24 months * high risk patients: follow-up at 3-6 months, then at 18-24 months if no change Note: newly detected indeterminate nodule in persons 35 years of age or older. * Low risk patients: minimal or absent history of smoking and/or other known risk factors * high risk patients: history of smoking or of other known risk factors (e.g. first degree relative with lung cancer, or exposure to asbestos, radon, uranium) * if a nodule up to 8 mm is partly solid or is ground glass further follow-up is required after 24 m onths to exclude possible slow growing adenocarcinoma (MITCHELL) SUBSOLID NODULES Solitary pure ground-glass nodule * nodule size <6 mm - no CT follow-up required * nodule size >=6 mm - follow-up CT at 6-12 months, then every 2 years until 5 years Solitary part-solid nodule * nodule size <6 mm - no CT follow-up required * nodule size >=6 mm - follow-up CT at 3-6 months. If unchanged, and solid component remains <6 mm, then annual follow-up for 5 years Multiple subsolid nodules * nodule size <6 mm - follow-up CT at 3-6 months, consider further follow-up at 2 and 4 years if sta ble * nodule size >=6 mm - follow-up CT at 3-6 months, subsequent management based on the most suspiciou s nodule(s) ACT 112: Negative or not required by law. Electronically signed by: Joey Sy M.D. 09/08/2021 8:16 PM
[2021-09-08] MEDS ORDERED: HEPARIN SOD 5,000 UNIT/0.5 ML VIAL SQ SCH (21:44)
[2021-09-08] MEDS ORDERED: ACETAMINOPHEN 325 MG TAB PO PRN (21:44)
[2021-09-08] MEDS ORDERED: ONDANSETRON INJ 2 MG/ML 2 ML VIAL IV PRN (21:44)
[2021-09-08] MEDS: ASPIRIN 81 MG ECTAB PO SCH (22:26)
[2021-09-08] MEDS: carvediloL 3.125 MG TAB PO SCH (22:26)
[2021-09-08] MEDS: SIMVASTATIN 40 MG TAB PO SCH (22:27)
[2021-09-08] MEDS: HEPARIN SOD 5,000 UNIT/0.5 ML VIAL SQ SCH (22:27)
[2021-09-09] MEDS: LACTATED RINGER'S 1,000 ML IV SCH ×3 (01:00→19:51)
[2021-09-09] MEDS: MAGNESIUM SULFATE / D5W 1 GM/100 ML BAG IV SCH (01:00)
[2021-09-09] MEDS: RASPBERRY SYRUP 5 ML UDP PO SCH ×4 (01:00→17:59)
[2021-09-09] MEDS: VANCOMYCIN HCL 125 MG/2.5ML SOLN PO SCH ×4 (01:00→17:59)
[2021-09-09 04:41] LABS: Adenovirus F 40/41 PCR Not Detected (NotDetected); Astrovirus PCR Not Detected (NotDetected); Campylobacter PCR Not Detected (NotDetected); Cryptosporidium PCR Not Detected (NotDetected); Cyclospora cayetanensis PCR Not Detected (NotDetected); Entamoeba histolytica PCR Not Detected (NotDetected); Enteroaggregative E.coli(EAEC) Not Detected (NotDetected); Enteropathogenic E.coli (EPEC) Not Detected (NotDetected); Enterotoxigenic E.coli (ETEC) Not Detected (NotDetected); Giardia lamblia PCR Not Detected (NotDetected); Norovirus GI/GII PCR Not Detected (NotDetected); Plesiomonas shigelloides PCR Not Detected (NotDetected); Rotavirus A PCR Not Detected (NotDetected); Salmonella PCR Not Detected (NotDetected); Sapovirus PCR Not Detected (NotDetected); Shiga-like Toxin E.coli (STEC) Not Detected (NotDetected); Shigella/Enteroinvasive E.coli Not Detected (NotDetected); Vibrio cholerae PCR Not Detected (NotDetected); Vibrio species PCR Not Detected (NotDetected); Yersinia enterocolitica PCR Not Detected (NotDetected)
[2021-09-09 05:34] LABS: Cdiff Antigen Positive
[2021-09-09 05:38] LABS: Cdiff Toxin A+B Positive Cdiff Toxin (Negative)
[2021-09-09 07:13] LABS: Basophils # (auto) 0.01 K/uL (0-0.2); Basophils % (auto) 0.1 %; Eosinophils # (auto) 0.01 K/uL (0-0.5); Eosinophils % (auto) 0.1 %; Hematocrit (blood only) 28.2 % (37-47); Hemoglobin 9.4 g/dL (12.0-16.0); Immature Granulocytes # (auto) 0.01 K/uL (0.00-0.02); Immature Granulocytes % (auto) 0.1 %; Lymphocytes # (auto) 0.65 K/uL (1.2-3.4); Lymphocytes % (auto) 6.2 %; Mean Corpuscular Hemoglobin 29.6 pg (25-34); Mean Corpuscular Hgb Conc 33.3 g/dL (32-36); Mean Corpuscular Volume 88.7 fL (80-100); Mean Platelet Volume 10.2 fL (7.4-10.4); Monocytes # (auto) 1.12 K/uL (0.11-0.59); Monocytes % (auto) 10.7 %; Neutrophils # (auto) 8.65 K/uL (1.4-6.5); Neutrophils % (auto) 82.8 %; Platelet Count 222 K/uL (130-400); RDW Coefficient of Variation 14.6 % (11.5-14.5); RDW Standard Deviation 47.7 fL (36.4-46.3); Red Blood Count 3.18 M/uL (4.2-5.4); White Blood Count 10.45 K/uL (4.8-10.8)
[2021-09-09 07:25] LABS: BUN Creatinine Ratio 25.5 (10-20); Calcium 8.1 mg/dl (8.5-10.1); Creatinine Clr Calc Pharmacy 34.6 ml/min; Est GFR (African American) 62.8 ml/min; Est GFR (Non-African American) 54.2 ml/min; Magnesium 2.1 mg/dl (1.7-2.4); Potassium 3.5 mmol/L (3.5-5.1)
[2021-09-09] MEDS: carvediloL 3.125 MG TAB PO SCH ×2 (08:32→21:10)
[2021-09-09] MEDS: HEPARIN SOD 5,000 UNIT/0.5 ML VIAL SQ SCH (08:33)
--- NOTE | 2021-09-09 12:47 | Hospitalist Progress Note ---
Date of Service September 09, 2021 Assessment & Plan (1) Diarrhea: Plan: Diarrhea most likely consistent at this time C. Diff - Symptoms started following ABX and LLQ abdominal pain was noted after her diarrhea started - 5-6 episodes per day - Gaston diet - Continue LR for replacement of intravascular volume--will cap this afternoon as long as continues to tolerate oral intake - Lactate and PCT negative (2) C. difficile colitis: Plan: - Continue Oral Vancomycin - CT scan consistent with pancolitis (3) UTI (urinary tract infection): Plan: 08/24/21 E. Coli with past culture- no sensitivities - Rocephin 2GM IV q24 empirically started - Urine cx final this AM showing mixed organisms, probably contaminated - Ordered repeat UA and urine cx, continue abx until finalized (4) Anemia: Plan: - Normocytic normochromic - Iron panel ordered - Vitamin B12 and Folate - Hold Heparin - Heme test stools - 2g drop overnight--component of this could be dilutional but needs further w/u - Repeat CBC in AM (5) Hypomagnesemia: Plan: Secondary to diarrhea loses and poor oral intake - Mg 1.7, IV supplementation ordered, repeat this AM 2.1 (6) Abdominal pain: Plan: As above- LLQ tenderness rule out diverticulitis - evaluate Colon size as well with CTAP (7) Aortic stenosis: Plan: Follows with Dr. Lopez- had worsening of Aortic Stenosis - EF 60% with mild LVH - LVOT/AVTI ratio 0.21 - Awaiting evaluation for likely TAVR at [facility] [place] (8) CAD (coronary artery disease): Plan: Non-obstructive via cath 07/11 - Moderate nonobstructive multivessel coronary artery disease -40 % distal left main (CSA 7.4 mm by IVUS) 50 to 60% (by IVUS) ostial/proximal LAD disease (FFR 0.85). 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 This could represent internal hemorrhage within an adrenal gland nodule (13) Incidental lung nodule: Plan: A few scattered nodules within the lung bases with the largest in the left lower lobe measuring 6 mm. There is also a small focus of consolidation within the base of the lingula measuring 1.6 cm. These bear watching on future examinations. Solitary nodule size: 6-8 mm * Low risk patients: follow-up at 6-12 months, then consider further follow-up at 18-24 months * high risk patients: initial follow-up CT at 6-12 months and then at 18-24 months if no change Multiple nodules size: 6-8 mm * Low risk patients: follow-up at 3-6 months, then consider further follow-up at 18-24 months * high risk patients: follow-up at 3-6 months, then at 18-24 months if no change Plan: Interventions as outlined above Anemia w/u Reduce fluid rate and advance diet as tolerated AM labs PT/OT eval Case management c/s for d/c planning Admission and Anticipated Discharge Date Admission Date: September 08, 2021 Subjective Patient was seen on daily rounds this morning. She reports had three diarrheal stools this morning. Mild abdominal discomfort. She denies fever or chills. No n/v this morning. Review of Systems Review of Systems: REVIEW OF SYSTEMS: Constitutional: No fever, sweats or chills Eyes: No diplopia, no worsening or blurred vision ENT: normal hearing, no trouble swallowing Respiratory: (+) dyspnea worsening to valve function, No cough, sputum, Cardiovascular: No chest pain, tightness or palpitations Abdomen: (+) pain, diarrhea, NO constipation, nausea/vomiting Musculoskeletal: No joint pain, calf pain, swelling Neurologic: (+) generalized weakness Psychiatric: No anxiety or depression Skin: No rash or itch Physical Exam Physical Exam: GENERAL: Thin frail 89 yo WF. Pleasant, cooperative, NAD. LUNGS: Clear to auscultation bilaterally. No W/R/R. CARDIOVASCULAR: RRR ABDOMEN: Soft, mild diffuse tenderness to palpation, BS present x 4 quad. EXTREMITIES: No edema. Non-tender. Peripheral pulses +2/4. NEUROLOGIC: A&O x3. PSYCHIATRIC: Cooperative. Appropriate mood and affect. SKIN: Warm, dry, intact. No rashes or lesions. Results & Data Results & Data ([facility]) Vital Signs (Past 12 Hours) Vital Signs Temp Pulse Resp BP Pulse Ox 09/09/21 08:37 37.2 C 82 16 102/65 95 Laboratory Results 09/09/21 06:40 09/09/21 06:40 PG Care Time/CCT Total # of Minutes Spent Total Time Spent with Patient: Total time spent is greater than 50% in coordination of care (as documented) at patient's floor/unit and/or counseling patient: Coding Level of Care Code 38867 Subseq Hosp Care Lvl 3 Diagnoses Diarrhea R19.7 C. difficile colitis A04.72 UTI (urinary tract infection) N39.0 Hypomagnesemia E83.42 Abdominal pain R10.9 Aortic stenosis I35.0 CAD (coronary artery disease) I25.10 HLD (hyperlipidemia) E78.5 HTN (hypertension) I10 Mitral regurgitation I34.0 Incidental adrenal cortical adenoma D35.00 Incidental lung nodule R91.1 Anemia D64.9
[2021-09-09 12:54] LABS: Appearance Urine Cloudy (Clear); Bacteria Urine Automated Negative (Negative); Bilirubin Urine Negative (Negative); Blood Urine 2+ (Negative); Color Urine Dark Yellow; Epithelial Cell Urine Auto >30 /lpf (0-5); Glucose Urine UA Negative (Negative); Ketones Urine Trace (Negative); Leukocyte Esterase Urine 1+ (Negative); Nitrite Urine Negative (Negative); Protein Urine 1+ (Negative); Specific Gravity Urine 1.025 (1.000-1.030); Urobilinogen Urine Negative (Negative)
[2021-09-09 13:32] LABS: Amorphous Sediment Urine Present (None Prsent)
[2021-09-09 14:02] LABS: Reticulocytes # 0.03 10^6/uL (0.02-0.10)
[2021-09-09 14:46] LABS: Ferritin 129.8 ng/ml (8-388)
[2021-09-09] MEDS ORDERED: cefTRIAXone SODIUM 2,000 MG in DEXTROSE 5% 50 ML IV SCH (18:00)
[2021-09-09] MEDS: ASPIRIN 81 MG ECTAB PO SCH (21:10)
[2021-09-09] MEDS: SIMVASTATIN 40 MG TAB PO SCH (21:10)
[2021-09-10] MEDS: RASPBERRY SYRUP 5 ML UDP PO SCH ×3 (00:47→12:14)
[2021-09-10] MEDS: VANCOMYCIN HCL 125 MG/2.5ML SOLN PO SCH ×3 (00:47→12:13)
[2021-09-10 07:19] LABS: Basophils # (auto) 0.02 K/uL (0-0.2); Basophils % (auto) 0.2 %; Eosinophils % (auto) 1.2 %; Hemoglobin 9.2 g/dL (12.0-16.0); Immature Granulocytes # (auto) 0.01 K/uL (0.00-0.02); Immature Granulocytes % (auto) 0.1 %; Lymphocytes # (auto) 1.48 K/uL (1.2-3.4); Lymphocytes % (auto) 18.1 %; Mean Corpuscular Hemoglobin 29.3 pg (25-34); Mean Corpuscular Hgb Conc 32.9 g/dL (32-36); Mean Corpuscular Volume 89.2 fL (80-100); Mean Platelet Volume 10.3 fL (7.4-10.4); Monocytes # (auto) 0.85 K/uL (0.11-0.59); Monocytes % (auto) 10.4 %; Neutrophils # (auto) 5.73 K/uL (1.4-6.5); Platelet Count 200 K/uL (130-400); RDW Coefficient of Variation 14.8 % (11.5-14.5); RDW Standard Deviation 47.9 fL (36.4-46.3); Red Blood Count 3.14 M/uL (4.2-5.4); White Blood Count 8.19 K/uL (4.8-10.8)
[2021-09-10 07:20] LABS: BUN Creatinine Ratio 20.5 (10-20); Calcium 7.8 mg/dl (8.5-10.1); Creatinine Clr Calc Pharmacy 39.1 ml/min; Magnesium 1.8 mg/dl (1.7-2.4); Potassium 2.9 mmol/L (3.5-5.1)
[2021-09-10] MEDS: carvediloL 3.125 MG TAB PO SCH (08:18)
[2021-09-10] MEDS: POTASSIUM CHLORIDE CRTAB 20 MEQ TABCR PO SCH ×2 (09:26→12:14)
[2021-09-10] MEDS: LACTATED RINGER'S 1,000 ML IV SCH (09:53)
--- NOTE | 2021-09-10 16:42 | Discharge Summary ---
Date of Service September 10, 2021 Admission HPI Per Admitting Provider 89 YOF with past medical history of: Aortic Stenosis (Severe), Moderate Mitral Regurge, HTN, HLD, UTI. Patient comes to the [facility] today for complaints of increase fatigue, diarrhea, decreased oral intake, this has been ongoing for the past 2 weeks, she endorses that this recently started after she was given Cefdinir for URI. This was initiated on on 08/24/21, she was also subsequently found at that time to have E.Coli on her urine culture, but sensitivities were not performed. The patient states that she has some lower quadrant abdominal pain that started after the diarrhea began. She denies fevers, chills, back pain, or vomiting. Her stools have been soft with mostly water and particles floating on top, without mucous or blood. The patient was noted to be hypotensive on arrival to the [facility] she was given 1 liter of crystalloid; followed by LR @125ml/hr. In the EMD the patient had routine labs performed, blood cultures, and UA. The patient's lab work was indicative of elevated WBC to 18 with NLR, and UA was consistent as well with UTI. She is awaiting stool studies to include C. DIFF. Patient is tender to bilateral lower quadrants of her abdomen, with left > right, will obtain CT of the abdomen and pelvis to evaluate for diverticulitis. Patient history more consistent with C. Diff at this time, will start empirically on oral Vancomycin while studies are pending. Place on Rocephin for her UTI. Await her results of CT abdomen and pelvis for further antibiotic tailoring. She has felt better following her IVF and attempting bland diet in the ER. Continue with IVF. Patient has been getting worked up for AV replacement likely TAVR- she follows with [facility] cardiology. She had cath done for part of her evaluation and noted with moderate non-obstructive CAD. She feels her symptoms are stable at this time and has not worsened with her decrease oral intake or hypotension noted above. COVID test on admission is: NEGATIVE Principal Diagnosis 1. C. difficile with pancolitis 2. Leukocytosisresolved 3. Hypotensionresolved 4. Right hypokalemiareplaced Discharge Exam General: Resting comfortably in her hospital bed. Appears mildly ill but not toxic. NAD. HEENT: Head is AT/NC. Buccal mucosa is moist and pink Neck: No JVD. Negative hepatojugular reflex Cardiac: RRR without M/G/R Lungs: CTA without W/R/R Abdomen: Normoactive X4. Soft and nontender in all quadrants. Extremities: No peripheral clubbing cyanosis or edema Neuro: A&O X4. Cranial nerves II through XII are grossly intact. No focal neuro deficits Skin: No obvious skin lesions or rashes Psych: Appropriate affect. Pleasant and cooperative Discharge Data Allergies Allergy/AdvReac Type Severity Reaction Status Date / Time Penicillins Allergy Intermediate Hives Verified 09/08/21 15:23 Sulfa (Sulfonamide AdvReac Intermediate Vomiting Verified 09/08/21 15:23 Antibiotics) Consultations 09/08/21 17:34 ED Decision to Admit Stat Ordered Studies 09/08/21 17:55 CT abd pelvis wo con Stat IMPRESSION: 1. Mild to moderate bowel wall thickening involving the colon with associated pericolonic fat stranding. This is consistent with a pancolitis and favors an infectious or inflammatory process such as a C. difficile colitis. No perforation or abscess identified. 2. Colonic diverticulosis. No evidence for acute diverticulitis. 3. No evidence for bowel obstruction. 4. Prior appendectomy. 5. A few scattered nodules within the lung bases with the largest in the left lower lobe measuring 6 mm. There is also a small focus of consolidation within the base of the lingula measuring 1.6 cm. These bear watching on future examinations. 6. There is a 2.8 cm hyperdense left adrenal gland nodule. This could represent internal hemorrhage within an adrenal gland nodule. Hospital Course (1) C. difficile colitis: -Presented with associated hypotension (89/63) and leukocytosis (18 K) along with CT evidence of pancolitis -Recently treated with cefdinir for UTI -C. difficile toxin and gene both positive -Has been started on oral vancomycin and showing favorable response -WBC count has normalized and blood pressure improved (116/68) -No longer with abdominal pain and only 2 bouts of diarrhea within the past 24 hours (significantly improved) -Patient did have associated weakness upon arrival but this has improved. Seen by PT/OT who did note patient is independent. They recommend home with self- care. Patient adamant and anxious for discharge. Did speak with daughter who is very reluctant to accept the discharge. I explained that there are no medical contraindications to proceed with discharge. Her concern is regarding weakness. Again, I reassured her that therapy denotes patient is independent. In addition, I personally watched patient ambulate to and from the bathroom which she did so completely independently with a front wheeled walker. Order given for front wheeled walker. Patient's daughter requesting a bedside commode; however, case management ensures that this would not be covered by her insurance. She can purchase this at [facility] should she so choose; however, this would increase the risk of spreading infection (2) Abdominal pain: - Radiographic evidence of pancolitis secondary to C. difficile- see above (3) Anemia: Presenting hemoglobin of 11.1. Did drop to 9.2 with aggressive IV hydration. Suspect this is dilutional as her fluid balance is over 5 L positive hold ASA x 14 days given pancolitis and risk of bleeding from inflammation (again, recommend FU CBC to trend H/H) -Work-up done and iron level is low at 11. Recommend iron supplementation X3 to 6 months. Follow-up labs at the discretion of PCP. Would advise follow-up CBC to trend hemoglobin. No obvious indication of bleeding at this time. We will avoid PPIs for GI prophylaxis given active C. difficile. (4) Electrolyte abnormality: Hypokalemia and hypomagnesemiaboth replace (5) Aortic stenosis: Follows with Dr. Lopez- had worsening of Aortic Stenosis - EF 60% with mild LVH - LVOT/AVTI ratio 0.21 - Awaiting evaluation for likely TAVR at [facility] (6) CAD (coronary artery disease): Non-obstructive via cath 07/11 - Moderate nonobstructive multivessel coronary artery disease -40 % distal left main (CSA 7.4 mm by IVUS) 50 to 60% (by IVUS) ostial/proximal LAD disease (FFR 0.85). 50% ostial circumflex 40% R-PAV after takeoff of PDA Continue BB, Statin, hold ASA x 14 days (pending FU labs-- at discretion of PCP) (7) HLD (hyperlipidemia): - Continue simvastatin 40mg nightly (8) HTN (hypertension): Controlled- She was hypotensive on arrival- improved following 1L of crystalloid - Continue Carvedilol with hold parameters (9) Mitral regurgitation: As above- no change reported on previous ECHO (10) Incidental adrenal cortical adenoma: There is a 2.8 cm hyperdense left adrenal gland nodule. This could represent internal hemorrhage within an adrenal gland nodule (11) Incidental lung nodule: A few scattered nodules within the lung bases with the largest in the left lower lobe measuring 6 mm. There is also a small focus of consolidation within the base of the lingula measuring 1.6 cm. These bear watching on future examinations. Solitary nodule size: 6-8 mm * Low risk patients: follow-up at 6-12 months, then consider further follow-up at 18-24 months * high risk patients: initial follow-up CT at 6-12 months and then at 18-24 months if no change Multiple nodules size: 6-8 mm * Low risk patients: follow-up at 3-6 months, then consider further follow-up at 18-24 months * high risk patients: follow-up at 3-6 months, then at 18-24 months if no change Total Time Total Time Spent Total Time Spent (In Minutes): 45 minutes including time spent with patient, discussion with daughter, coordination of care with case management, preparation of documentation and discussion with attending provider Discharge Plan Discharge Items Patient Disposition: Home - Self-Care Reason For Visit: C. DIFF, UTI Discharge Diagnosis: 1. Acute Clostridium Difficile ("C.Diff") 2. Hypotension 3. Leukocytosis (elevated white blood cell count) 4. Pancolitis (inflammation of the entire colon- secondary to C.Diff) 5. Hypokalemia- low potassium (supplemented) Activity: Resume your previous activity Non-emergency contact: Primary Care Provider Call non-emergency contact if: you have any medication questions Follow-up/Referrals: Benson Vasquez, [Primary Care Provider] - 09/17/21 10:30 am Diet: Regular Addtl Attending Provider Instructions: You presented to the emergency department complaining of diarrhea and were found to have a superinfection called Clostridium difficile (also known as "C. difficile"). This caused associated leukocytosis (elevated white blood cell count) and hypotension (low blood pressure) which have both resolved with appropriate IV hydration and oral antibiotics. In addition, your diarrhea has improved greatly. Your potassium was noted to be low on the day of discharge (likely secondary to diarrhea). This was supplemented You need to continue oral antibiotics (vancomycin) for a total of 10 days Would recommend holding your aspirin for 10 to 14 days. You had herman colitis (inflammation of your entire bowel) secondary to this C. difficile infection. If inflamed enough, can cause bleeding. your blood count did drop while in the hospital but it is not suspected that you are actively bleeding. This is likely dilutional from all of the IV fluids given. You iron level was obtain and is low. would recommend iron supplementation x 3 months (at discretion of PCP) Hold your hydrochlorothiazide. Your blood pressure was marginally low upon presentation which was likely related to dehydration and active infection. Your blood pressure has improved but on the lower end of normal (111/72) without blood pressure medication. Hold this until seen in follow-up by PCP. Your family practitioner will help decide when and if you can go back on your HCTZ. You should follow-up with your PCP within 7 to 10 days. Recommend follow-up labs including a basic metabolic panel to trend your potassium, and a CBC to trend your blood count. Return to the ED for any new or worsening symptoms You were found to have an incidental lung nodule measuring 6 mm in the left lower lobe. In addition, an additional nodule seen in the lingula measuring 1.6 cm noted. Recommend follow-up CT scan within 3 to 6 monthsat discretion of PCP In addition, you are found to have a 2.8 cm hyperdense left adrenal gland nodule which will need follow-up surveillanceat discretion of PCP Pending Studies at Discharge: No Stand-Alone Forms: My [facility] Medications and DC Order Prescriptions: New vancomycin 1,000 mg Recon Soln 125 mg PO Q6 Qty: 33 RF: 0 ferrous sulfate 325 mg (65 mg iron) tablet 325 mg PO DAILY Qty: 30 RF: 0 Continued simvastatin 40 mg Tablet 40 mg PO HS RF: 0 carvedilol 3.125 mg Tablet 3.125 mg PO BID RF: 0 Discontinued hydrochlorothiazide 25 mg Tablet 25 mg PO QAM RF: 0 aspirin 81 mg Capsule 81 mg PO HS RF: 0 Discharge Orders: Discharge Order (Routine); Ordered 09/10/21 Ordered By: Cristel Philippe/Other Patient Handouts: Clostridium Difficile Infection, What Is C. Diff?, My C. Diff Infection Treatment Plan Admission Data Admit Date/Time: 09/08/21 17:38 Attending Provider: Lino Solomon Admit Provider: Orin Conde Primary Care Provider: Benson Vasquez Other Providers: Orin Conde Other Interventions: Discharge Summary Assessment (RN) Last Done: 09/10/21 14:54 Coding Level of Care Code D/C DAY MANAGEMENT >30 MINS Diagnoses C. difficile colitis A04.72 Anemia D64.9 Abdominal pain R10.9 Aortic stenosis I35.0 CAD (coronary artery disease) I25.10 HLD (hyperlipidemia) E78.5 HTN (hypertension) I10 Mitral regurgitation I34.0 Incidental adrenal cortical adenoma D35.00 Incidental lung nodule R91.1 Electrolyte abnormality E87.8
== END 2021-09-10 17:23 | disposition home or self-care (01) | DRG 372 ==
LOC: ED 12:33 → 3N 17:38 → SUATTDRO 17:38 → 3N 20:58

== ENCOUNTER 2021-12-25 10:06 | Observation (INO) ==
[2021-12-25 10:34] LABS: Basophils # (auto) 0.02 K/uL (0-0.2); Basophils % (auto) 0.2 %; Eosinophils # (auto) 0.06 K/uL (0-0.50); Eosinophils % (auto) 0.7 %; Hematocrit (blood only) 32.6 % (34.1-44.9); Hemoglobin 10.6 g/dl (12.0-16.0); Immature Granulocytes # (auto) 0.03 K/uL (0.00-0.02); Immature Granulocytes % (auto) 0.4 %; Lymphocytes # (auto) 1.15 K/uL (1.2-3.4); Lymphocytes % (auto) 13.5 %; Mean Corpuscular Hemoglobin 27.7 pg (25.0-34.0); Mean Corpuscular Hgb Conc 32.5 g/dL (32.0-36.0); Mean Corpuscular Volume 85.3 fL (80.0-100.0); Mean Platelet Volume 10.3 fL (9.4-12.3); Monocytes # (auto) 0.86 K/uL (0.24-0.82); Monocytes % (auto) 10.1 %; Neutrophils % (auto) 75.1 %; Platelet Count 234 K/uL (130-400); RDW Standard Deviation 46.6 fL (36.4-46.3); Red Blood Count 3.82 M/uL (3.93-5.22); White Blood Count 8.52 K/ul (4.8-10.8)
--- NOTE | 2021-12-25 10:36 | Emergency Department Note ---
Impression & Plan Colitis, Acute UTI ED Provider Note Provider: Antoni Smith MD DATE OF SERVICE: 12/25/2021 CHIEF COMPLAINT: Diarrhea HISTORY OF PRESENT ILLNESS: Patient is a 89-year-old female with a history of UTI, hypertension, aortic stenosis, mitral regurgitation, and C. difficile colitis just finishing antibiotics for this on December 05 reporting that approximate 2 days ago she developed some diarrhea several times a day. She states it feels similar to when she had C. difficile. Did have some urinary symptoms and a pending culture with her PCP and has not started antibiotics before. Does follow with [facility]. Patient reports lower to left-sided abdominal discomfort. No blood in the diarrhea. Again it does feel similar to prior episodes of C. difficile. Some chills reported and decreased oral intake. Patient states she is felt unsteady on her feet but has not fallen. REVIEW OF SYSTEMS: A total of 10 review of systems was obtained and negative except as stated above in the HPI. PAST MEDICAL HISTORY: As noted above MEDICATIONS: Reviewed home medication list SOCIAL HISTORY: Lives at home by her self PHYSICAL EXAM: GENERAL: alert and oriented in no acute distress on stretcher Head: normocephalic and atraumatic EYES: No injection, discharge or icterus. NECK: Trachea midline. ENT: Mucous membranes pink and moist. LUNGS: Airway patent. No retractions. Breath sounds clear with good air entry bilaterally. HEART: Regular rate and rhythm. No chest wall tenderness ABDOMEN: Soft and non-tender, without guarding or rebound. SKIN: Acyanotic, warm, dry EXTREMITIES: Without swelling, tenderness or deformity NEUROLOGICAL: No focal deficits. No aphasia. No facial droop or slurred speech. Normal strength and tone in the extremities. Sensation to gross touch normal. Ambulatory. CONTINUOUS CARDIAC MONITORING: was ordered and showed a heart rate of 60s-70s bpm in normal sinus rhythm Patient's laboratory studies and imaging reviewed. Differential includes Infection, gastrointestinal, dehydration, metabolic abnormality, hypo/hyperglycemia, electrolyte disturbance, anemia, hypoxia, cardiac sources, intracerebral event, toxicologic, neurologic, as well as other pathologies. IMPRESSION/MEDICAL DECISION MAKING: Patient with significant history of recurrent C. difficile. Seen with the resident physician. Reviewed records from the primary care's office. Some low er abdominal discomfort decreased intake and feeling unsteady. No recent antibiotics but has had some urinary urge. Outpatient urine culture did grow Proteus sensitivities pending. Afebrile here. No leukocytosis. Mild anemia. No severe electrolyte abnormality or signs of acute hepatitis. CT of the abdomen pelvis given report of pain was obtained. CT scan radiology with a nonspecific colitis without acute diverticulitis. Urinalysis questionable here and again has a Proteus urine culture growing. Patient again does endorse some unsteadiness although likely has not fallen yet. Discussed with her the findings. We will treat with ceftriaxone and given the history while the stool PCR is pending Will empirically start Dificid at this point. In discussion with her given the fact she lives alone and with her age and both the UTI and colitis finding she felt uncomfortable being home at this time. Further observation here pending some clinical improvement will be pursued. Again urine culture from [facility] is in the [facility] system with Proteus pending sensitivities. Stool PCR is positive for the C. difficile gene with toxin pending. DIAGNOSIS: Colitis, diarrhea, UTI DISPOSITION: Hospitalist will evaluate Patient was agreeable with this plan. Past Med/Surg History Medical History (Updated 12/25/21 @ 12:37 by Antoni Smith M.D.) Aortic stenosis CAD (coronary artery disease) HLD (hyperlipidemia) HTN (hypertension) Hypertension Mitral regurgitation UTI (urinary tract infection) Family History (Updated 09/08/21 @ 18:29 by VIRGINIE Cherry) Other Family history non-contributory Social History Smoking Status: Former smoker Second Hand Exposure: No; Hx Alcohol Use: No Hx Substance Use: No Preferred Language: Lithuanian Communication Ability: Effective Customer Success Associate Required: No Beliefs That Will Affect Care: None marital status: / Current Living Situation: Alone Feels Safe at Home: Yes Assistive Devices: Denture - Upper and Glasses Allergies Allergies Allergy/AdvReac Type Severity Reaction Status Date / Time Penicillins Allergy Intermediate Hives Verified 12/25/21 14:23 Sulfa (Sulfonamide AdvReac Intermediate Vomiting Verified 12/25/21 14:23 Antibiotics) Home Meds Home Medications Medication Instructions Recorded Confirmed carvedilol 3.125 mg tablet 3.125 mg PO BID 07/20/21 12/25/21 simvastatin 40 mg tablet 40 mg PO HS 07/20/21 12/25/21 hydrochlorothiazide 25 mg tablet 25 mg PO QAM 12/25/21 12/25/21 Results & Data (ED) Vital Signs Vital Signs - 24 hr 12/25/21 10:09 12/25/21 10:13 12/25/21 10:30 Temperature 36.9 C Temperature Source Oral Pulse Rate 67 69 63 Pulse Rate [Apical] Pulse Rate from SpO2 Sensor 70 64 Respiratory Rate 18 20 20 Respiratory Effort / Characteristics Non-Labored Respiratory Depth Normal Respiratory Pattern Regular Blood Pressure 147/82 H 117/66 Blood Pressure [Right Arm] Blood Pressure Mean 103 83 Blood Pressure Mean [Right Arm] Blood Pressure Position Sitting Pulse Oximetry 95 94 96 Oxygen Delivery Method Room Air Sepsis Recent Fever Within 48 Hours No Sepsis New/Unexplained Change in Mental Status No Sepsis Action Taken by Nursing No Action Required 12/25/21 11:00 12/25/21 11:30 12/25/21 12:02 Temperature Temperature Source Pulse Rate 61 55 L Pulse Rate [Apical] 68 Pulse Rate from SpO2 Sensor 60 Respiratory Rate 13 18 20 Respiratory Effort / Characteristics Non-Labored Respiratory Depth Normal Respiratory Pattern Blood Pressure 125/65 Blood Pressure [Right Arm] 131/74 Blood Pressure Mean 85 Blood Pressure Mean [Right Arm] 93 Blood Pressure Position Pulse Oximetry 97 95 Oxygen Delivery Method Room Air Sepsis Recent Fever Within 48 Hours Sepsis New/Unexplained Change in Mental Status Sepsis Action Taken by Nursing 12/25/21 12:03 12/25/21 12:30 12/25/21 13:02 Temperature Temperature Source Pulse Rate 69 67 Pulse Rate [Apical] Pulse Rate from SpO2 Sensor 66 65 Respiratory Rate 20 18 Respiratory Effort / Characteristics Respiratory Depth Respiratory Pattern Blood Pressure 131/74 125/73 Blood Pressure [Right Arm] Blood Pressure Mean 93 90 Blood Pressure Mean [Right Arm] Blood Pressure Position Pulse Oximetry 99 97 Oxygen Delivery Method Sepsis Recent Fever Within 48 Hours Sepsis New/Unexplained Change in Mental Status Sepsis Action Taken by Nursing 12/25/21 13:30 Temperature Temperature Source Pulse Rate Pulse Rate [Apical] Pulse Rate from SpO2 Sensor 62 Respiratory Rate Respiratory Effort / Characteristics Respiratory Depth Respiratory Pattern Blood Pressure 142/81 H Blood Pressure [Right Arm] Blood Pressure Mean 101 Blood Pressure Mean [Right Arm] Blood Pressure Position Pulse Oximetry 100 Oxygen Delivery Method Sepsis Recent Fever Within 48 Hours Sepsis New/Unexplained Change in Mental Status Sepsis Action Taken by Nursing Laboratory Data Result diagrams: 12/25/21 10:15 12/25/21 10:15 Lab Results 12/25/21 12/25/21 12/25/21 Range/Units 10:15 10:15 10:15 WBC 8.52 (4.8-10.8) K/ul RBC 3.82 L (3.93-5.22) M/uL Hgb 10.6 L (12.0-16.0) g/dl Hct 32.6 L (34.1-44.9) % MCV 85.3 (80.0-100.0) fL MCH 27.7 (25.0-34.0) pg MCHC 32.5 (32.0-36.0) g/dL RDW Std Deviation 46.6 H (36.4-46.3) fL RDW Coeff of Annette 15.0 H (11.5-14.5) % Plt Count 234 (130-400) K/uL MPV 10.3 (9.4-12.3) fL Immature Gran % (Auto) 0.4 % Neut % (Auto) 75.1 % Lymph % (Auto) 13.5 % [place] % (Auto) 10.1 % Eos % (Auto) 0.7 % Baso % (Auto) 0.2 % Neut # (Auto) 6.40 (1.4-6.5) K/uL Lymph # (Auto) 1.15 L (1.2-3.4) K/uL [place] # (Auto) 0.86 H (0.24-0.82) K/uL Eos # (Auto) 0.06 (0-0.50) K/uL Baso # (Auto) 0.02 (0-0.2) K/uL Immature Gran # (Auto) 0.03 H (0.00-0.02) K/uL Sodium 137 (136-145) mmol/L Potassium 3.5 (3.5-5.1) mmol/L Chloride 105 (98-107) mmol/L Carbon Dioxide 22 (21-32) mmol/L Anion Gap 10 (3-11) BUN 33 H (6-23) mg/dl Creatinine 1.12 (0.6-1.2) mg/dl Est Cr Clr Drug Dosing 25.7 ml/min Est GFR ( Amer) 50.4 ml/min Est GFR (Non-Af Amer) 43.5 ml/min BUN/Creatinine Ratio 29.5 H (10-20) Glucose 95 (70-99(Fasting)) mg/dl Lactate (0.4-2.0) mmol/L Calcium 9.4 (8.5-10.1) mg/dl Magnesium 1.7 (1.7-2.4) mg/dl Total Bilirubin 0.5 (0.2-1.0) mg/dl AST 22 (13-39) U/L ALT 18 (7-52) U/L Alkaline Phosphatase 57 (34-104) U/L Troponin I High Sens 9.1 (0-14) pg/ml Total Protein 7.3 (6.0-8.3) gm/dl Albumin 3.7 (3.4-5.0) gm/dl Globulin 3.6 (2.5-4.0) gm/dl Albumin/Globulin Ratio 1.0 (0.9-2) Procalcitonin (0-0.5) ng/ml TSH 1.934 (0.300-4.500) uIu/ml Urine Color Urine Appearance (Clear) Urine pH (4.5-7.5) Ur Specific [place] (1.000-1.030) Urine Protein (Negative) Urine Glucose (UA) (Negative) Urine Ketones (Negative) Urine Blood (Negative) Urine Nitrite (Negative) Urine Bilirubin (Negative) Urine Urobilinogen (Negative) Ur Leukocyte Esterase (Negative) Urine WBC (Auto) (0-5) /hpf Urine RBC (Auto) (0-4) /hpf U Hyaline Cast (Auto) (0-5) /lpf U Epithel Cells (Auto) (0-5) /lpf Urine Bacteria (Auto) (Negative) Stl C. cayetanensis PCR (NotDetected) Stool Rotavirus A PCR (NotDetected) Stl Adenov F 40/41 PCR (NotDetected) Stool Astrovirus (PCR) (NotDetected) Stool Campylobacter PCR (NotDetected) Stl C. diff Tox A/B PCR (NotDetected) Stool Cryptosporidium PCR (NotDetected) Stl E.coli Shiga Tox PCR (NotDetected) Stl Enterotoxigenic E PCR (NotDetected) Stool EPEC (PCR) (NotDetected) Stool EAEC (PCR) (NotDetected) Stl E. histolytica PCR (NotDetected) Stool Giardia Lamblia PCR (NotDetected) Stool Salmonella PCR (NotDetected) Stool Sapovirus (PCR) (NotDetected) Stl P. shigelloides PCR (NotDetected) Stl Shigella/EIEC PCR (NotDetected) St Y.enterocolitica PCR (NotDetected) Stool Vibrio (PCR) (NotDetected) Stl Vibrio cholerae PCR (NotDetected) Stl Norovirus GI/GII PCR (NotDetected) SARS-CoV-2, RNA, NAAT (NEGATIVE) 12/25/21 12/25/21 12/25/21 Range/Units 10:15 11:20 11:25 WBC (4.8-10.8) K/ul RBC (3.93-5.22) M/uL Hgb (12.0-16.0) g/dl Hct (34.1-44.9) % MCV (80.0-100.0) fL MCH (25.0-34.0) pg MCHC (32.0-36.0) g/dL RDW Std Deviation (36.4-46.3) fL RDW Coeff of Annette (11.5-14.5) % Plt Count (130-400) K/uL MPV (9.4-12.3) fL Immature Gran % (Auto) % Neut % (Auto) % Lymph % (Auto) % [place] % (Auto) % Eos % (Auto) % Baso % (Auto) % Neut # (Auto) (1.4-6.5) K/uL Lymph # (Auto) (1.2-3.4) K/uL [place] # (Auto) (0.24-0.82) K/uL Eos # (Auto) (0-0.50) K/uL Baso # (Auto) (0-0.2) K/uL Immature Gran # (Auto) (0.00-0.02) K/uL Sodium (136-145) mmol/L Potassium (3.5-5.1) mmol/L Chloride (98-107) mmol/L Carbon Dioxide (21-32) mmol/L Anion Gap (3-11) BUN (6-23) mg/dl Creatinine (0.6-1.2) mg/dl Est Cr Clr Drug Dosing ml/min Est GFR ( Amer) ml/min Est GFR (Non-Af Amer) ml/min BUN/Creatinine Ratio (10-20) Glucose (70-99(Fasting)) mg/dl Lactate 1.0 (0.4-2.0) mmol/L Calcium (8.5-10.1) mg/dl Magnesium (1.7-2.4) mg/dl Total Bilirubin (0.2-1.0) mg/dl AST (13-39) U/L ALT (7-52) U/L Alkaline Phosphatase (34-104) U/L Troponin I High Sens (0-14) pg/ml Total Protein (6.0-8.3) gm/dl Albumin (3.4-5.0) gm/dl Globulin (2.5-4.0) gm/dl Albumin/Globulin Ratio (0.9-2) Procalcitonin < 0.05 (0-0.5) ng/ml TSH (0.300-4.500) uIu/ml Urine Color Urine Appearance (Clear) Urine pH (4.5-7.5) Ur Specific [place] (1.000-1.030) Urine Protein (Negative) Urine Glucose (UA) (Negative) Urine Ketones (Negative) Urine Blood (Negative) Urine Nitrite (Negative) Urine Bilirubin (Negative) Urine Urobilinogen (Negative) Ur Leukocyte Esterase (Negative) Urine WBC (Auto) (0-5) /hpf Urine RBC (Auto) (0-4) /hpf U Hyaline Cast (Auto) (0-5) /lpf U Epithel Cells (Auto) (0-5) /lpf Urine Bacteria (Auto) (Negative) Stl C. cayetanensis PCR (NotDetected) Stool Rotavirus A PCR (NotDetected) Stl Adenov F 40/41 PCR (NotDetected) Stool Astrovirus (PCR) (NotDetected) Stool Campylobacter PCR (NotDetected) Stl C. diff Tox A/B PCR (NotDetected) Stool Cryptosporidium PCR (NotDetected) Stl E.coli Shiga Tox PCR (NotDetected) Stl Enterotoxigenic E PCR (NotDetected) Stool EPEC (PCR) (NotDetected) Stool EAEC (PCR) (NotDetected) Stl E. histolytica PCR (NotDetected) Stool Giardia Lamblia PCR (NotDetected) Stool Salmonella PCR (NotDetected) Stool Sapovirus (PCR) (NotDetected) Stl P. shigelloides PCR (NotDetected) Stl Shigella/EIEC PCR (NotDetected) St Y.enterocolitica PCR (NotDetected) Stool Vibrio (PCR) (NotDetected) Stl Vibrio cholerae PCR (NotDetected) Stl Norovirus GI/GII PCR (NotDetected) SARS-CoV-2, RNA, NAAT NEGATIVE (NEGATIVE) 12/25/21 12/25/21 Range/Units 11:30 12:00 WBC (4.8-10.8) K/ul RBC (3.93-5.22) M/uL Hgb (12.0-16.0) g/dl Hct (34.1-44.9) % MCV (80.0-100.0) fL MCH (25.0-34.0) pg MCHC (32.0-36.0) g/dL RDW Std Deviation (36.4-46.3) fL RDW Coeff of Annette (11.5-14.5) % Plt Count (130-400) K/uL MPV (9.4-12.3) fL Immature Gran % (Auto) % Neut % (Auto) % Lymph % (Auto) % [place] % (Auto) % Eos % (Auto) % Baso % (Auto) % Neut # (Auto) (1.4-6.5) K/uL Lymph # (Auto) (1.2-3.4) K/uL [place] # (Auto) (0.24-0.82) K/uL Eos # (Auto) (0-0.50) K/uL Baso # (Auto) (0-0.2) K/uL Immature Gran # (Auto) (0.00-0.02) K/uL Sodium (136-145) mmol/L Potassium (3.5-5.1) mmol/L Chloride (98-107) mmol/L Carbon Dioxide (21-32) mmol/L Anion Gap (3-11) BUN (6-23) mg/dl Creatinine (0.6-1.2) mg/dl Est Cr Clr Drug Dosing ml/min Est GFR ( Amer) ml/min Est GFR (Non-Af Amer) ml/min BUN/Creatinine Ratio (10-20) Glucose (70-99(Fasting)) mg/dl Lactate (0.4-2.0) mmol/L Calcium (8.5-10.1) mg/dl Magnesium (1.7-2.4) mg/dl Total Bilirubin (0.2-1.0) mg/dl AST (13-39) U/L ALT (7-52) U/L Alkaline Phosphatase (34-104) U/L Troponin I High Sens (0-14) pg/ml Total Protein (6.0-8.3) gm/dl Albumin (3.4-5.0) gm/dl Globulin (2.5-4.0) gm/dl Albumin/Globulin Ratio (0.9-2) Procalcitonin (0-0.5) ng/ml TSH (0.300-4.500) uIu/ml Urine Color Yellow Urine Appearance Clear (Clear) Urine pH 6.5 (4.5-7.5) Ur Specific [place] 1.017 (1.000-1.030) Urine Protein Negative (Negative) Urine Glucose (UA) Negative (Negative) Urine Ketones Negative (Negative) Urine Blood Negative (Negative) Urine Nitrite Positive A (Negative) Urine Bilirubin Negative (Negative) Urine Urobilinogen Negative (Negative) Ur Leukocyte Esterase 1+ H (Negative) Urine WBC (Auto) 10-30 H (0-5) /hpf Urine RBC (Auto) 0-4 (0-4) /hpf U Hyaline Cast (Auto) 0 (0-5) /lpf U Epithel Cells (Auto) 10-20 H (0-5) /lpf Urine Bacteria (Auto) 4+ H (Negative) Stl C. cayetanensis PCR Not Detected (NotDetected) Stool Rotavirus A PCR Not Detected (NotDetected) Stl Adenov F 40/41 PCR Not Detected (NotDetected) Stool Astrovirus (PCR) Not Detected (NotDetected) Stool Campylobacter PCR Not Detected (NotDetected) Stl C. diff Tox A/B PCR C.diff Gene Detected A (NotDetected) Stool Cryptosporidium PCR Not Detected (NotDetected) Stl E.coli Shiga Tox PCR Not Detected (NotDetected) Stl Enterotoxigenic E PCR Not Detected (NotDetected) Stool EPEC (PCR) Not Detected (NotDetected) Stool EAEC (PCR) Not Detected (NotDetected) Stl E. histolytica PCR Not Detected (NotDetected) Stool Giardia Lamblia PCR Not Detected (NotDetected) Stool Salmonella PCR Not Detected (NotDetected) Stool Sapovirus (PCR) Not Detected (NotDetected) Stl P. shigelloides PCR Not Detected (NotDetected) Stl Shigella/EIEC PCR Not Detected (NotDetected) St Y.enterocolitica PCR Not Detected (NotDetected) Stool Vibrio (PCR) Not Detected (NotDetected) Stl Vibrio cholerae PCR Not Detected (NotDetected) Stl Norovirus GI/GII PCR Not Detected (NotDetected) SARS-CoV-2, RNA, NAAT (NEGATIVE) Administered Medications Discontinued Medications Fidaxomicin (Fidaxomicin 200 Mg Tab) 200 mg PO ONCE ONE Stop: 12/25/21 13:09 Last Admin: 12/25/21 13:45 Dose: 200 mg Documented by: [id number] Sodium Chloride (Nss 1000ml) 500 mls @ 999 mls/hr IV .Q31M ONE Stop: 12/25/21 11:07 Last Admin: 12/25/21 12:12 Dose: 999 mls/hr Documented by: [id number] Magnesium Sulfate/Dextrose (Magnesium Sulfate / D5w) 1 gm in 100 mls @ 100 mls/hr IV NOW STA Stop: 12/25/21 12:02 Last Infusion: 12/25/21 13:20 Dose: 0 mls/hr Documented by: [id number] Admin: 12/25/21 12:12 Dose: 100 mls/hr Documented by: [id number] Potassium Chloride (K Clay / Wtr) 10 meq in 100 mls @ 100 mls/hr IV Q1H ROSANA; Protocol Stop: 12/25/21 13:14 Last Admin: 12/25/21 14:15 Dose: 100 mls/hr Documented by: [id number] Infusion: 12/25/21 14:13 Dose: 0 mls/hr Documented by: [id number] Admin: 12/25/21 13:20 Dose: 100 mls/hr Documented by: [id number] Ioversol (Optiray 320 100ml) 95 ml IV ONCE ONE Stop: 12/25/21 11:55 Last Admin: 12/25/21 11:45 Dose: 95 ml Documented by: [id number] Imaging Data Radiologist's Impression: Abdomen/Pelvis CT 12/25/21 11:11 CT SCAN OF THE ABDOMEN AND PELVIS WITH IV CONTRAST CLINICAL HISTORY: Lower abdominal pain. Diarrhea. COMPARISON STUDY: Abdominal CT dated 09/08/2021. TECHNIQUE: Following the IV administration of 95 cc of Optiray 320, CT scan of the abdomen and pelvis is performed from the lung bases to the proximal femora. Images are reviewed in the axial, sagittal, and coronal planes. IV contrast was administered without complication. A dose lowering technique was utilized adhering to the principles of ALARA. CT DOSE: 277.62 mGy.cm FINDINGS: Lung bases: The heart is mildly enlarged and without pericardial effusion. The coronary arteries and mitral annulus are densely calcified. There is mild aneurysmal dilatation of the ascending thoracic aorta which measures up to 4.2 cm in diameter. There is elevation of the right hemidiaphragm with bibasilar scarring/atelectasis. There are scattered calcified granulomas. A 3 mm right middle lobe pulmonary nodule is seen on image #11. 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 Liver: The contrast-enhanced liver is normal in size, contour, and attenuation. There is no intrahepatic biliary ductal dilatation. The hepatic veins and portal veins are patent. There are 2 hypodense hepatic lesions measure up to 1.7 cm. These lesions demonstrate tiny foci of peripheral nodular enhancement. Although incompletely characterized, these likely represent hemangiomas. Gallbladder: Unremarkable. Spleen: Normal in size and attenuation. Pancreas: Unremarkable. Adrenal glands: A 2.9 cm indeterminate left adrenal nodule is unchanged. The right adrenal gland is normal in appearance. Kidneys: The contrast enhanced kidneys demonstrate mild cortical atrophy and are without hydronephrosis. The kidneys enhance symmetrically. Scattered subcentimeter cortical hypodensities likely represent cysts but are too small for definitive characterization. Abdominal vasculature: The abdominal aorta is normal in course and caliber noting moderate to advanced atherosclerotic calcification. Bowel: There is advanced colonic diverticulosis without CT evidence of acute diverticulitis. Mild fecal retention is seen throughout the colon. No bowel obstruction is identified. There is mild wall thickening and mucosal hyperemia seen throughout the left colon with faint pericolonic infiltration. The appearance is consistent with a nonspecific colitis. The appendix is not identified and reported surgically absent. Peritoneum: There is no intraperitoneal free air or abdominal ascites. Lymphadenopathy: None. Pelvic viscera: The bladder and uterus are normal as imaged. Cystic foci in the right ovary are similar to previous and measure up to 1.6 cm. Skeletal structures: The skeletal structures are osteopenic. There is advanced lumbosacral spondylosis and scoliosis. No lytic or blastic lesions are seen. IMPRESSION: 1. Findings consistent with a nonspecific colitis. Clinical correlation will be required. 2. Colonic diverticulosis without CT evidence of acute diverticulitis. 3. There is aneurysmal dilatation of the ascending thoracic aorta which measures up to 4.2 cm in diameter. 4. Cardiomegaly. 5. Additional findings as above.. ACT 112: Negative or not required by law. Electronically signed by: Edwin White M.D. 12/25/2021 12:15 PM Discharge Plan Visit Data Chief Complaint: Diarrhea Stated Complaint: weakness ED Provider: Antoni Smith ED Midlevel Provider: Alvarado Leo Discharge Problem: Colitis, Acute UTI Patient Disposition: Transfer Acute Care Hospital Forms Stand Alone Forms: My [facility] [employer] Prescriptions Prescriptions: No Action simvastatin 40 mg Tablet 40 mg PO HS RF: 0 carvedilol 3.125 mg Tablet 3.125 mg PO BID RF: 0 hydrochlorothiazide 25 mg tablet 25 mg PO QAM RF: 0 Referrals Referrals: Benson Vasquez, [Physician] -
[2021-12-25] MEDS ORDERED: SODIUM CHLORIDE 0.9% 1000ML 500 ML IV ONE (10:37)
--- NOTE | 2021-12-25 10:44 | Communication Note ---
Date of Service: December 25, 2021 This patient was seen in concert with Dr. Smith and we discussed and agreed upon the history, physical, assessment, and plan. See attending's note for de tails. Resident Activity Tracking Resident Involvement: Resident Care Provided Care Provided: Adult ED
[2021-12-25 11:00] LABS: Albumin Level 3.7 gm/dl (3.4-5.0); BUN Creatinine Ratio 29.5 (10-20); Bilirubin,Total 0.5 mg/dl (0.2-1.0); Calcium 9.4 mg/dl (8.5-10.1); Creatinine Clr Calc Pharmacy 25.7 ml/min; Est GFR (African American) 50.4 ml/min; Est GFR (Non-African American) 43.5 ml/min; Globulin 3.6 gm/dl (2.5-4.0); Magnesium 1.7 mg/dl (1.7-2.4); Potassium 3.5 mmol/L (3.5-5.1); Total Protein 7.3 gm/dl (6.0-8.3); Troponin I High Sensitivity 9.1 pg/ml (0-14)
[2021-12-25] MEDS ORDERED: MAGNESIUM SULFATE / D5W 1 GM/100 ML BAG IV STA (11:03)
[2021-12-25] MEDS ORDERED: OPTIRAY 320 100ml IV ONE (11:54)
[2021-12-25 12:14] LABS: Appearance Urine Clear (Clear); Bacteria Urine Automated 4+ (Negative); Bilirubin Urine Negative (Negative); Blood Urine Negative (Negative); Cast Urine Automated 0 /lpf (0-5); Color Urine Yellow; Glucose Urine UA Negative (Negative); Ketones Urine Negative (Negative); Leukocyte Esterase Urine 1+ (Negative); Nitrite Urine Positive (Negative); Protein Urine Negative (Negative); RBC Urine Automated 0-4 /hpf (0-4); Specific Gravity Urine 1.017 (1.000-1.030); Urobilinogen Urine Negative (Negative); pH Urine 6.5 (4.5-7.5)
--- NOTE | 2021-12-25 12:16 | CT Scan Report ---
CT SCAN OF THE ABDOMEN AND PELVIS WITH IV CONTRAST CLINICAL HISTORY: Lower abdominal pain. Diarrhea. COMPARISON STUDY: Abdominal CT dated 09/08/2021. TECHNIQUE: Following the IV administration of 95 cc of Optiray 320, CT scan of the abdomen and pelvi s is performed from the lung bases to the proximal femora. Images are reviewed in the axial, sagittal , and coronal planes. IV contrast was administered without complication. A dose lowering technique wa s utilized adhering to the principles of ALARA. CT DOSE: 277.62 mGy.cm FINDINGS: Lung bases: The heart is mildly enlarged and without pericardial effusion. The coronary arteries and mitral annulus are densely calcified. There is mild aneurysmal dilatation of the ascending thoracic a tuan which measures up to 4.2 cm in diameter. There is elevation of the right hemidiaphragm with biba silar scarring/atelectasis. There are scattered calcified granulomas. A 3 mm right middle lobe pulmon joao nodule is seen on image #11. 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 Liver: The contrast-enhanced liver is normal in size, contour, and attenuation. There is no intrahepa tic biliary ductal dilatation. The hepatic veins and portal veins are patent. There are 2 hypodense h epatic lesions measure up to 1.7 cm. These lesions demonstrate tiny foci of peripheral nodular enhanc ement. Although incompletely characterized, these likely represent hemangiomas. Gallbladder: Unremarkable. Spleen: Normal in size and attenuation. Pancreas: Unremarkable. Adrenal glands: A 2.9 cm indeterminate left adrenal nodule is unchanged. The right adrenal gland is n ormal in appearance. Kidneys: The contrast enhanced kidneys demonstrate mild cortical atrophy and are without hydronephros is. The kidneys enhance symmetrically. Scattered subcentimeter cortical hypodensities likely represen t cysts but are too small for definitive characterization. Abdominal vasculature: The abdominal aorta is normal in course and caliber noting moderate to advance d atherosclerotic calcification. Bowel: There is advanced colonic diverticulosis without CT evidence of acute diverticulitis. Mild fec al retention is seen throughout the colon. No bowel obstruction is identified. There is mild wall thi ckening and mucosal hyperemia seen throughout the left colon with faint pericolonic infiltration. The appearance is consistent with a nonspecific colitis. The appendix is not identified and reported yan rgically absent. Peritoneum: There is no intraperitoneal free air or abdominal ascites. Lymphadenopathy: None. Pelvic viscera: The bladder and uterus are normal as imaged. Cystic foci in the right ovary are simil ar to previous and measure up to 1.6 cm. Skeletal structures: The skeletal structures are osteopenic. There is advanced lumbosacral spondylosi s and scoliosis. No lytic or blastic lesions are seen. IMPRESSION: 1. Findings consistent with a nonspecific colitis. Clinical correlation will be required. 2. Colonic diverticulosis without CT evidence of acute diverticulitis. 3. There is aneurysmal dilatation of the ascending thoracic aorta which measures up to 4.2 cm in diam eter. 4. Cardiomegaly. 5. Additional findings as above.. ACT 112: Negative or not required by law. Electronically signed by: Edwin White M.D. 12/25/2021 12:15 PM
[2021-12-25] MEDS ORDERED: FIDAXOMICIN 200 MG TAB PO ONE (13:08)
[2021-12-25] MEDS ORDERED: cefTRIAXone SODIUM 1,000 MG/50 ML BAG IV STA (13:08)
[2021-12-25] MEDS: POTASSIUM CHLORIDE / WTR 10 MEQ/100 ML PLCT IV SCH ×2 (13:20→14:15)
[2021-12-25 13:35] LABS: Adenovirus F 40/41 PCR Not Detected (NotDetected); Astrovirus PCR Not Detected (NotDetected); Campylobacter PCR Not Detected (NotDetected); Cryptosporidium PCR Not Detected (NotDetected); Cyclospora cayetanensis PCR Not Detected (NotDetected); Entamoeba histolytica PCR Not Detected (NotDetected); Enteroaggregative E.coli(EAEC) Not Detected (NotDetected); Enteropathogenic E.coli (EPEC) Not Detected (NotDetected); Enterotoxigenic E.coli (ETEC) Not Detected (NotDetected); Giardia lamblia PCR Not Detected (NotDetected); Norovirus GI/GII PCR Not Detected (NotDetected); Plesiomonas shigelloides PCR Not Detected (NotDetected); Rotavirus A PCR Not Detected (NotDetected); Salmonella PCR Not Detected (NotDetected); Sapovirus PCR Not Detected (NotDetected); Shiga-like Toxin E.coli (STEC) Not Detected (NotDetected); Shigella/Enteroinvasive E.coli Not Detected (NotDetected); Vibrio cholerae PCR Not Detected (NotDetected); Vibrio species PCR Not Detected (NotDetected); Yersinia enterocolitica PCR Not Detected (NotDetected)
--- NOTE | 2021-12-25 13:47 | History & Physical Report ---
Date of Service December 25, 2021 Assessment & Plan (1) C. difficile colitis: Plan: Dificid 200mg BID for 10 days then once every other day for 20 days Will apply for bezlotoxumab to be given as outpatient on discharge given significant recurrence and patient should follow up with GI to consider fecal transplant Low fiber diet (2) UTI (urinary tract infection): Plan: Ceftriaxone 1g IV daily Follow up urine and blood cultures - reportedly growing Proteus sensitive to Ceftin on outpatient cultures (3) Generalized weakness: Plan: Suspect secondary to c. diff colitis +/- UTI PT/OT evals (4) Dehydration: Plan: Elevated BUN suspect due to diarrhea Continue gentle IV fluids overnight (5) HTN (hypertension): Plan: Hold HCTZ due to mild dehydration Continue carvedilol 3.125mg PO BID (6) HLD (hyperlipidemia): Plan: Continue simvastatin 40mg PO HS Plan: VTE Prophylaxis - heparin 5000 units SQ BID Diet - low fiber Disposition - observation status to med/surg Admission and Anticipated Discharge Date Admission Date: December 25, 2021 History of Present Illness Chief Complaint: Diarrhea, fatigue Primary Care Provider: Lynn Post Rica Boss is an 89 year old who presents to the ER with generalized weakness, fatigue and diarrhea. 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 Symptoms returned in September and she was treated with a prolonged rapering vancomycin course over 24 days. She again had recurrent symptoms and was advised to switch to Dificid but because of cost she initially was treated with vancomycin again but after 9 day was switched to a prolonged Dificid taper over 25 days which she reports finishing on December 05. At the same time as her last c. diff course she was also diagnosed with a UTI treated with Macrobid with symptoms of urinary frequency. S he reports her urinary frequency came back and has now been ongoing since the 19 December (7 days). She denies any fever, chills, dysuria, change in urine smell/color or flank pain. She has a urine culture outstanding with her PCP taken 1-2 days ago regarding this but us yet to go on antibiotics. In the last two days she has had watery diarrhea (2 BM so far today) which feels like her prior c. diff episodes. In the ER she was started on Dificid for presumed c. diff colitis and given ceftriaxone for presumed UTI. CT abdomen/pelvis showed a non-specific colitis. She is not septic but lives alone, mildly dehydrated and is much weaker than usual therefore she was referred to medicine for admission and ongoing management of UTI, weakness, diarrhea and colitis. Allergies Allergy/AdvReac Type Severity Reaction Status Date / Time Penicillins Allergy Intermediate Hives Verified 12/25/21 14:23 Sulfa (Sulfonamide AdvReac Intermediate Vomiting Verified 12/25/21 14:23 Antibiotics) Home Medications Medication Instructions Recorded Confirmed Type carvedilol 3.125 mg tablet 3.125 mg PO BID 07/20/21 12/25/21 History simvastatin 40 mg tablet 40 mg PO HS 07/20/21 12/25/21 History hydrochlorothiazide 25 mg tablet 25 mg PO QAM 12/25/21 12/25/21 History Past Med/Surg History Medical History (Updated 12/25/21 @ 15:01 by Aydin Perez MD) Aortic stenosis CAD (coronary artery disease) HLD (hyperlipidemia) HTN (hypertension) Hypertension Mitral regurgitation UTI (urinary tract infection) Family History (Updated 09/08/21 @ 18:29 by VIRGINIE Cherry) Other Family history non-contributory Social History Smoking Status: Former smoker Second Hand Exposure: No; Do You Dip or Chew Tobacco: No; Hx Alcohol Use: No Hx Substance Use: No Preferred Language: Albanian Communication Ability: Effective [employer] Required: No Beliefs That Will Affect Care: None marital status: / Current Living Situation: Alone Other Information That Helps Us Care for You: Yes Feels Safe at Home: Yes Safety Concerns: Feels Safe At This Time Assistive Devices: Denture - Upper, Glasses and Walker Assistive Devices Comment: lower dental implants Review of Systems Review of Systems: All systems reviewed & are unremarkable except as noted in HPI & below Physical Exam Constitutional: WD/WN, vitals as above Eyes: + anicteric sclerae; normal pupil size ENMT: external ear and nose normal, oropharynx normal Neck: trachea midline, no thyromegaly Respiratory: normal respiratory effort, lungs clear to auscultation Cardiovascular: Rate/Rhythm: regular rate and regular rhythm Heart Sounds: + murmur Vessels: no JVD Extremities: normal capillary refill; no calf tenderness and no pedal edema Gastrointestinal (Abdomen): Inspection/Auscultation: normal bowel sounds Percussion/Palpation: + abdomen tender (suprapubic) and abdomen soft; no guarding and abdomen not rigid Musculoskeletal: no cyanosis or clubbing, extremities motor strength 5/5 Skin: no rashes, warm and dry Neurologic: moves all extremities and awake; not confused Psychiatric: A+Ox3, euthymic affect Genitourinary: no CVA tenderness Results & Data Results & Data ([facility]) Vital Signs (Past 12 Hours) Vital Signs Temp Pulse Pulse Resp BP BP Pulse Ox 12/25/21 13:30 142/81 H 100 12/25/21 13:02 97 12/25/21 12:30 67 18 125/73 12/25/21 12:03 69 20 131/74 99 12/25/21 12:02 68 20 131/74 95 12/25/21 11:30 55 L 18 12/25/21 11:00 61 13 125/65 97 12/25/21 10:30 63 20 117/66 96 12/25/21 10:13 69 20 94 12/25/21 10:09 36.9 C 67 18 147/82 H 95 Laboratory Results Abnormal lab results 12/25/21 12/25/21 12/25/21 Range/Units 10:15 10:15 11:30 RBC 3.82 L (3.93-5.22) M/uL Hgb 10.6 L (12.0-16.0) g/dl Hct 32.6 L (34.1-44.9) % RDW Std Deviation 46.6 H (36.4-46.3) fL RDW Coeff of Annette 15.0 H (11.5-14.5) % Lymph # (Auto) 1.15 L (1.2-3.4) K/uL Bosque # (Auto) 0.86 H (0.24-0.82) K/uL Immature Gran # (Auto) 0.03 H (0.00-0.02) K/uL BUN 33 H (6-23) mg/dl BUN/Creatinine Ratio 29.5 H (10-20) Urine Nitrite (Negative) Ur Leukocyte Esterase (Negative) Urine WBC (Auto) (0-5) /hpf U Epithel Cells (Auto) (0-5) /lpf Urine Bacteria (Auto) (Negative) Stl C.difficile Tox A&B Positive Cdiff Toxin A* (Negative) Stl C. diff Tox A/B PCR C.diff Gene Detected A (NotDetected) 12/25/21 Range/Units 12:00 RBC (3.93-5.22) M/uL Hgb (12.0-16.0) g/dl Hct (34.1-44.9) % RDW Std Deviation (36.4-46.3) fL RDW Coeff of Annette (11.5-14.5) % Lymph # (Auto) (1.2-3.4) K/uL [place] # (Auto) (0.24-0.82) K/uL Immature Gran # (Auto) (0.00-0.02) K/uL BUN (6-23) mg/dl BUN/Creatinine Ratio (10-20) Urine Nitrite Positive A (Negative) Ur Leukocyte Esterase 1+ H (Negative) Urine WBC (Auto) 10-30 H (0-5) /hpf U Epithel Cells (Auto) 10-20 H (0-5) /lpf Urine Bacteria (Auto) 4+ H (Negative) Stl C.difficile Tox A&B (Negative) Stl C. diff Tox A/B PCR (NotDetected) Diagnostic Findings CT SCAN OF THE ABDOMEN AND PELVIS WITH IV CONTRAST CLINICAL HISTORY: Lower abdominal pain. Diarrhea. COMPARISON STUDY: Abdominal CT dated 09/08/2021. TECHNIQUE: Following the IV administration of 95 cc of Optiray 320, CT scan of the abdomen and pelvis is performed from the lung bases to the proximal femora. Images are reviewed in the axial, sagittal, and coronal planes. IV contrast was administered without complication. A dose lowering technique was utilized adhering to the principles of ALARA. CT DOSE: 277.62 mGy.cm FINDINGS: Lung bases: The heart is mildly enlarged and without pericardial effusion. The coronary arteries and mitral annulus are densely calcified. There is mild aneurysmal dilatation of the ascending thoracic aorta which measures up to 4.2 cm in diameter. There is elevation of the right hemidiaphragm with bibasilar scarring/atelectasis. There are scattered calcified granulomas. A 3 mm right middle lobe pulmonary nodule is seen on image #11. 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 Liver: The contrast-enhanced liver is normal in size, contour, and attenuation. There is no intrahepatic biliary ductal dilatation. The hepatic veins and portal veins are patent. There are 2 hypodense hepatic lesions measure up to 1.7 cm. These lesions demonstrate tiny foci of peripheral nodular enhancement. Although incompletely characterized, these likely represent hemangiomas. Gallbladder: Unremarkable. Spleen: Normal in size and attenuation. Pancreas: Unremarkable. Adrenal glands: A 2.9 cm indeterminate left adrenal nodule is unchanged. The right adrenal gland is normal in appearance. Kidneys: The contrast enhanced kidneys demonstrate mild cortical atrophy and are without hydronephrosis. The kidneys enhance symmetrically. Scattered subcentimeter cortical hypodensities likely represent cysts but are too small for definitive characterization. Abdominal vasculature: The abdominal aorta is normal in course and caliber noting moderate to advanced atherosclerotic calcification. Bowel: There is advanced colonic diverticulosis without CT evidence of acute diverticulitis. Mild fecal retention is seen throughout the colon. No bowel obstruction is identified. There is mild wall thickening and mucosal hyperemia seen throughout the left colon with faint pericolonic infiltration. The appearance is consistent with a nonspecific colitis. The appendix is not identified and reported surgically absent. Peritoneum: There is no intraperitoneal free air or abdominal ascites. Lymphadenopathy: None. Pelvic viscera: The bladder and uterus are normal as imaged. Cystic foci in the right ovary are similar to previous and measure up to 1.6 cm. Skeletal structures: The skeletal structures are osteopenic. There is advanced lumbosacral spondylosis and scoliosis. No lytic or blastic lesions are seen. IMPRESSION: 1. Findings consistent with a nonspecific colitis. Clinical correlation will be required. 2. Colonic diverticulosis without CT evidence of acute diverticulitis. 3. There is aneurysmal dilatation of the ascending thoracic aorta which measures up to 4.2 cm in diameter. 4. Cardiomegaly. 5. Additional findings as above.. Medications Administered ER Medications Given: NSS 500ml bolus Magnesium sulphate 1g IV KCl 10 meq IV x2 Fidaxomicin 200mg PO Ceftriaxone 1g IV ECG Indication: abdominal pain Rate (beats per minute): 62 Rhythm: normal sinus Findings: no acute ischemic change Comparison ECG Date: from (August 24, 2021) Change: no significant change Code Status & VTE Plan Code Status DNR/DNI VTE Prophylaxis Plan VTE Prophylaxis will be ordered: Yes PG Care Time/CCT Total # of Minutes Spent Total Time Spent with Patient: Total time spent is greater than 50% in coordination of care (as documented) at patient's floor/unit and/or counseling patient: Coding Level of Care Code INT OBSERVATION CARE 70M LVL 3 Diagnoses Generalized weakness R53.1 C. difficile colitis A04.72 UTI (urinary tract infection) N39.0 Dehydration E86.0 HTN (hypertension) I10 HLD (hyperlipidemia) E78.5
[2021-12-25 14:45] LABS: Cdiff Antigen Positive
[2021-12-25 14:56] LABS: Cdiff Toxin A+B Positive Cdiff Toxin (Negative)
[2021-12-25] MEDS: FIDAXOMICIN 200 MG TAB PO SCH (20:40)
[2021-12-25] MEDS: ACETAMINOPHEN 325 MG TAB PO PRN (20:40)
[2021-12-25] MEDS: SIMVASTATIN 40 MG TAB PO SCH (21:40)
[2021-12-25] MEDS: carvediloL 3.125 MG TAB PO SCH (21:40)
[2021-12-25] MEDS ORDERED: LACTATED RINGER'S 1,000 ML IV SCH (22:00)
--- NOTE | 2021-12-25 23:10 | Electrocardiogram Report ---
Test Reason : Blood Pressure : / mmHG Vent. Rate : 062 BPM Atrial Rate : 062 BPM P-R Int : 190 ms QRS Dur : 076 ms QT Int : 432 ms P-R-T Axes : 021 -11 023 degrees QTc Int : 438 ms Normal sinus rhythm Cannot rule out Anterior infarct (cited on or before 24-AUG-2021) Nonspecific T wave abnormality Abnormal ECG When compared with ECG of 24-AUG-2021 08:34, No significant change was found Confirmed by Tone Chin ([id number]) on 12/25/2021 11:10:49 PM Referred By: REFERRED SELF Confirmed By:Tone Chin
[2021-12-26 06:31] LABS: Basophils # (auto) 0.03 K/uL (0-0.2); Basophils % (auto) 0.4 %; Eosinophils # (auto) 0.07 K/uL (0-0.50); Eosinophils % (auto) 0.9 %; Hematocrit (blood only) 29.1 % (34.1-44.9); Hemoglobin 9.5 g/dl (12.0-16.0); Immature Granulocytes # (auto) 0.04 K/uL (0.00-0.02); Immature Granulocytes % (auto) 0.5 %; Lymphocytes # (auto) 1.11 K/uL (1.2-3.4); Lymphocytes % (auto) 14.1 %; Mean Corpuscular Hemoglobin 27.9 pg (25.0-34.0); Mean Corpuscular Hgb Conc 32.6 g/dL (32.0-36.0); Mean Corpuscular Volume 85.3 fL (80.0-100.0); Mean Platelet Volume 10.3 fL (9.4-12.3); Monocytes # (auto) 0.98 K/uL (0.24-0.82); Monocytes % (auto) 12.5 %; Neutrophils # (auto) 5.64 K/uL (1.4-6.5); Neutrophils % (auto) 71.6 %; Platelet Count 208 K/uL (130-400); RDW Coefficient of Variation 15.1 % (11.5-14.5); RDW Standard Deviation 46.9 fL (36.4-46.3); Red Blood Count 3.41 M/uL (3.93-5.22); White Blood Count 7.87 K/ul (4.8-10.8)
[2021-12-26 07:00] LABS: Calcium 8.7 mg/dl (8.5-10.1); Est GFR (African American) 65.7 ml/min; Est GFR (Non-African American) 56.7 ml/min; Potassium 3.9 mmol/L (3.5-5.1)
[2021-12-26] MEDS: ACETAMINOPHEN 325 MG TAB PO PRN ×2 (09:17→20:38)
[2021-12-26] MEDS: FIDAXOMICIN 200 MG TAB PO SCH ×2 (09:17→20:38)
[2021-12-26] MEDS: carvediloL 3.125 MG TAB PO SCH ×2 (09:18→20:39)
[2021-12-26] MEDS: HEPARIN SOD 5,000 UNIT/0.5 ML VIAL SQ SCH ×2 (10:58→20:39)
[2021-12-26] MEDS ORDERED: cefTRIAXone SODIUM 1,000 MG in DEXTROSE 5% 50 ML IV SCH (15:00)
[2021-12-26] MEDS: SIMVASTATIN 40 MG TAB PO SCH (20:39)
--- NOTE | 2021-12-26 22:41 | Hospitalist Progress Note ---
Date of Service December 26, 2021 Assessment & Plan (1) C. difficile colitis: Plan: Dificid 200mg BID for 10 days then once every other day for 20 days Discussed with case management on admission to set up bezlotoxumab to be given as outpatient on discharge given significant recurrence - unable to get awan but should be covered, will need to be set up on discharge. Patient should follow up with GI to consider fecal transplant Low fiber diet (2) UTI (urinary tract infection): Plan: Symptom with urinary frequency - improved. Suggest short course to limit antibiotic exposure making c. diff worse. Ceftriaxone 1g IV daily Follow up urine and blood cultures - reportedly growing Proteus sensitive to Ceftin on outpatient cultures (3) Generalized weakness: Plan: Suspect secondary to c. diff colitis +/- UTI PT/OT evals pending (4) Dehydration: Plan: Resolved (5) HTN (hypertension): Plan: Hold HCTZ due to mild dehydration Continue carvedilol 3.125mg PO BID (6) HLD (hyperlipidemia): Plan: Continue simvastatin 40mg PO HS Plan: VTE Prophylaxis - heparin 5000 units SQ BID Diet - low fiber Disposition - observation status to med/surg Admission and Anticipated Discharge Date Admission Date: December 25, 2021 Subjective No significant change in her diarrhea but reports her urinary frequency has improved. Not yet seen by PT/OT but feels generally weak. Eating well. Review of Systems Review of Systems: All systems reviewed & are unremarkable except as noted in Subjective Physical Exam Constitutional: WD/WN, vitals as above Respiratory: normal respiratory effort, lungs clear to auscultation Cardiovascular: Rate/Rhythm: regular rate and regular rhythm Heart Sounds: + murmur Vessels: no JVD Extremities: normal capillary refill; no calf tenderness and no pedal edema Gastrointestinal (Abdomen): Inspection/Auscultation: normal bowel sounds Percussion/Palpation: abdomen soft; abdomen nontender, no guarding and abdomen not rigid Neurologic: moves all extremities and awake; not confused Psychiatric: A+Ox3, euthymic affect Genitourinary: no CVA tenderness Results & Data Results & Data ([facility]) Vital Signs (Past 12 Hours) Vital Signs Temp Pulse Resp BP Pulse Ox 12/26/21 20:36 36.8 C 66 16 141/82 H 95 12/26/21 15:47 36.4 C L 60 16 113/69 96 PG Care Time/CCT Total # of Minutes Spent Total Time Spent with Patient: Total time spent is greater than 50% in coordination of care (as documented) at patient's floor/unit and/or counseling patient: Coding Level of Care Code 52932 Subseq Hosp Care Lvl 2 Diagnoses C. difficile colitis A04.72 UTI (urinary tract infection) N39.0 Generalized weakness R53.1 Dehydration E86.0 HTN (hypertension) I10 HLD (hyperlipidemia) E78.5
[2021-12-27] MEDS: FIDAXOMICIN 200 MG TAB PO SCH (09:11)
[2021-12-27] MEDS: ACETAMINOPHEN 325 MG TAB PO PRN (09:11)
[2021-12-27] MEDS: HEPARIN SOD 5,000 UNIT/0.5 ML VIAL SQ SCH (09:12)
[2021-12-27] MEDS: carvediloL 3.125 MG TAB PO SCH (09:12)
--- NOTE | 2021-12-27 13:46 | Discharge Summary ---
Date of Service December 27, 2021 Admission HPI Per Admitting Provider Rica Boss is an 89 year old who presents to the ER with generalized weakness, fatigue and diarrhea. 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 Symptoms returned in September and she was treated with a prolonged rapering vancomycin course over 24 days. She again had recurrent symptoms and was advised to switch to Dificid but because of cost she initially was treated with vancomycin again but after 9 day was switched to a prolonged Dificid taper over 25 days which she reports finishing on December 05. At the same time as her last c. diff course she was also diagnosed with a UTI treated with Macrobid with symptoms of urinary frequency. She reports her urinary frequency came back and has now been ongoing since the 19 December (7 days). She denies any fever, chills, dysuria, change in urine smell/color or flank pain. She has a urine culture outstanding with her PCP taken 1-2 days ago regarding this but us yet to go on antibiotics. In the last two days she has had watery diarrhea (2 BM so far today) which feels like her prior c. diff episodes. In the ER she was started on Dificid for presumed c. diff colitis and given ceftriaxone for presumed UTI. CT abdomen/pelvis showed a non-specific colitis. She is not septic but lives alone, mildly dehydrated and is much weaker than usual therefore she was referred to medicine for admission and ongoing manag ement of UTI, weakness, diarrhea and colitis. Principal Diagnosis C diff colitis Discharge Exam The patient is awake, alert and oriented 3, well developed and well nourished, normocephalic and atraumatic, lying in bed and in no acute distress. HEENT--PERRL, EOMI, mucous membranes and oropharynx mildly dry Neck--supple. No JVD. No bruits. Thyroid normal, trachea midline, no adenopathy. Heart--normal S1 and S2. No murmurs, rubs or gallops. Lungs--clear bilaterally, no respiratory distress, no accessory muscle use. Abdomen--normal bowel sounds and soft. Mild epigastric and left sided abdominal pain Extremities--no cyanosis or clubbing. No edema. Dermatologic--normal skin turgor, normal color, no abnormal lymph nodes, no rash. Neurologic--cranial nerves II through XII grossly intact. Rheumatologic--normal range of motion. Psychiatric--normal affect. Discharge Data Allergies Allergy/AdvReac Type Severity Reaction Status Date / Time Penicillins Allergy Intermediate Hives Verified 12/25/21 14:23 Sulfa (Sulfonamide AdvReac Intermediate Vomiting Verified 12/25/21 14:23 Antibiotics) Consultations 12/25/21 13:26 ED Decision to Admit Stat Ordered Studies 12/25/21 11:11 CT abd pelvis IV con only Stat Hospital Course (1) C. difficile colitis: Dificid 200mg BID for 10 days Discussed with case management on admission to set up bezlotoxumab to be given as outpatient on discharge given significant recurrence Patient should follow up with GI to consider fecal transplant Low fiber diet (2) UTI (urinary tract infection): Symptom with urinary frequency - improved. Suggest short course to limit antibiotic exposure making c. diff worse. Ceftriaxone 1g IV daily. completed 3 day IV antibiotics (3) Generalized weakness: Suspect secondary to c. diff colitis +/- UTI PT/OT evals pending (4) Dehydration: Resolved (5) HTN (hypertension): Hold HCTZ due to mild dehydration Continue carvedilol 3.125mg PO BID (6) HLD (hyperlipidemia): Continue simvastatin 40mg PO HS VTE Prophylaxis - heparin 5000 units SQ BID Diet - low fiber Disposition - observation status to med/surg Total Time Total Time Spent Total Time Spent (In Minutes): 35 Discharge Plan Discharge Items Patient Disposition: Home - Self-Care Reason For Visit: UTI, C. 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 Diff? Admission Data Admit Date/Time: 12/25/21 13:44 Attending Provider: Andrew Jade Admit Provider: Aydin Perez Primary Care Provider: Lynn Post Other Providers: Aydin Perez Other Interventions: Discharge Summary Assessment (RN) Last Done: 12/27/21 12:37 Coding Level of Care Code D/C DAY MANAGEMENT >30 MINS Diagnoses C. difficile colitis A04.72 UTI (urinary tract infection) N39.0 Generalized weakness R53.1 Dehydration E86.0 HTN (hypertension) I10 HLD (hyperlipidemia) E78.5 Time Spent (min) 35
== END 2021-12-27 15:34 | disposition home or self-care (01) ==
LOC: ED 10:06 → 3W 10:06 → SUATTDRO 13:44 → 3W 15:53